=== PATIENT | female | born 1935 | race Caucasian/White ===

== ENCOUNTER 2023-03-23 18:21 | Observation (INO) | payer MEDICARE, OTHER, SELFPAY ==
[2023-03-23] VITALS (10 sets, daily range): BP systolic 122–185; BP diastolic 60–94; BMI 20.5; BMI 20.9
--- NOTE | 2023-03-23 12:57 | ED.GENMED ---
History of Present Illness
General
Chief Complaint: Abdominal Symptoms
Source: patient
Exam Limitations: none
Time Seen by Provider: 03/23/23 12:18
Nursing documentation reviewed up to this point in time: agreed with
Travel History
Have you had any contact with someone who has COVID-19?: No
Do you have any symptoms of coronavirus? Fever > 100 degrees, chills, cough, shortness of breath, sore throat, loss of taste or smell, muscle aches, or headache?: No
History of Present Illness
History of Present Illness:
Patient to ED with complaint of diarrhea x 4 days. Unable to eat or drink. Reports generalized abdominal pain. Denies fever/chills. +nausea, no vomiting. No prior history of same. Evaluated by PCP this AM, sent to ED for eval. SHe was on
amoxicilin 2 weeks ago to treat pneumonia. Brought to ED by spouse for eval.
Past History
Past History
ED Past Medical History: Arrthythmia (A. fib) and HTN
ED Past Surgical History: Cholecystectomy and Orthopedic
Social History
Tobacco: Non-smoker
Alcohol: None
Personal:
Living: with family
Review of Systems
Review of Systems
Allergies reviewed?: Yes
All Other Systems: ROS reviewed and negative except as documented in HPI and ROS
Constitutional: Reports fatigue
EENT: Reports no symptoms
Respiratory: Reports no symptoms
Cardiac: Reports no symptoms
ABD/GI: Reports abdominal pain and diarrhea
: Reports no symptoms
Musculoskeletal: Reports no symptoms
Skin: Reports no symptoms
Neurological: Reports weakness
Psychiatric: Reports no symptoms
Phy Exam
General Physical Exam
General Presentation: mild distress
General age: appears stated age
General Skin: warm and dry
General Habitus: normal
General Mental: alert
General Hydration: dry mucous membranes
Cardiovascular Exam
Cardiovascular Exam: regular rate/rhythm and no edema
Pulmonary Exam
Pulmonary Exam: lungs clear and no respiratory distress
Gastrointestinal Exam
Gastrointestinal Exam: normal bowel sounds, soft, no organomegaly, no pulsatile mass, non distended and no cva tenderness
Palpation: generalized: Moderate tenderness
Musculoskeletal Exam
Musculoskeletal Exam: full ROM and neuro vasc intact
Skin Exam
Skin Exam: normal color, warm/dry and no rash
Psychiatric Exam
Psychiatric Exam: normal mood/affect
Course
Orders/Labs/Results
Orders:
Orders
03/23/23 12:55
Ondansetron Injectable [Zofran] 4 mg IV NOW STA
03/23/23 12:56
Urinalysis Reflex To Culture Urgent
Date Specimen was Collected: 03/23/23
Time Specimen was Collected: 13:00
0.9% Sodium Chloride 1000 ml [Nss] 1,000 ml IV BOLUS
03/23/23 12:57
CT Abd/pelvis W Iv Cont Urgent
Comment:
Reason For Exam: profuse diarrhea
03/23/23 13:44
Complete Blood Count/With Diff Urgent
Comprehensive Metabolic Panel Urgent
Lipase Urgent
03/23/23 18:02
Admit/Transfer Patient As Directed
Co-Sign Provider:
Level of Care: Observation services
Assign to:: Telemetry
Physician / Group: hospitalist
Diagnosis: Acute dehydration, Diarrhea, Abdominal pain
Reason for Telemetry: Arrhythmia
Date to Stop Telemetry: 03/26/23
Time to Stop Telemetry: 11:00
03/23/23 18:05
Code Status As Directed
Resuscitation Status: Full Code
03/23/23 19:25
STOOL [C difficile Antigen & Toxins] Urgent
UHMPHREY Source: Feces/Stool
Specimen Description:
Date Specimen was Collected: 03/23/23
Time Specimen was Collected: 13:00
Stool Culture Urgent
HUMPHREY Source: Feces/Stool
Specimen Description:
Date Specimen was Collected: 03/23/23
Time Specimen was Collected: 13:00
03/23/23 19:42
0.9% Sodium Chloride 1000 ml [Nss] 1,000 ml IV 80 mls/hr
Acetaminophen [Tylenol] 650 mg PO Q4HPRN PRN
Ondansetron Injectable [Zofran] 4 mg IV Q6HPRN PRN
03/23/23 19:42
GASTROINTESTINAL CONSULT Routine
Consulting Provider: Damaris Denson
Was physician already notified: Yes
Stool For WBC Urgent
HUMPHREY Source: Feces/Stool
Specimen Description:
Activity As Directed
Activity Level: Out of Bed-Early Mobility
Pneumatic Compression Sleeves As Directed
Type: Knee high
Vital Signs As Directed
Frequency: Per unit guidelines
DX Deep Vein Thrombosis Video Routine
03/23/23 20:00
Apixaban [Eliquis] 5 mg PO BID
Carvedilol [Coreg] 3.125 mg PO BID
03/24/23 Breakfast
Clear Liquid
At Your Request: Limited Participation
03/24/23 08:00
Amiodarone [Pacerone] 200 mg PO DAILY
03/26/23 11:00
DC Protocol for Telemetry ONCE
Abnormal Lab Results
03/23/23
13:44
RBC 3.95 L 10^6/uL
(4.20-5.40)
Hct 36.8 L %
(37.0-47.0)
MCH 31.4 H pg
(27.0-31.0)
MPV 10.8 H fL
(7.4-10.4)
Absolute Lymphs (auto) 1.0 L 10^3/uL
(1.2-3.4)
Absolute Monos (auto) 0.7 H 10^3/uL
(0.1-0.6)
Lymphocytes % 13.9 L %
(20.5-51.1)
Monocytes % 9.9 H %
(1.7-9.3)
Chloride 111 H mmol/L
(98-107)
BUN 23 H mg/dl
(7-17)
Creatinine 1.1 H mg/dL
(0.6-1.0)
Glucose 112 H mg/dl
(70-99)
Total Bilirubin 1.4 H mg/dl
(0.2-1.3)
AST 43 H U/L
(14-36)
ALT 42 H U/L
(0-35)
Albumin 3.4 L g/dl
(3.5-5.0)
03/23/23 13:44
03/23/23 13:44
Vital Signs
Initial and Last Documented VS:
Initial Vital Signs
Temp Pulse Resp BP Pulse Ox
97.7 F 66 18 137/62 100
03/23/23 11:11 03/23/23 11:11 03/23/23 11:11 03/23/23 11:11 03/23/23 11:11
Last Documented Vital Signs
Temp Pulse Resp BP Pulse Ox
98.1 F 77 19 122/61 98
03/23/23 19:26 03/23/23 19:33 03/23/23 19:33 03/23/23 19:26 03/23/23 19:26
*Critical Care Note
Total Time (30-74mins, 75-104mins- exclusive of procedures): Not Applicable
Update Note
Update Note:
Patient to ED with cmplaint of diarrhea x 4 days, Unable to eat or drink due to abdominal discomfort, ongoing diarrhea. Pateint with recent antibiotic use. On amoxicillin 2 weeks ago for pneumonia. Labs reviewed, CT reviewed. No stool while in
dept. Unable to r/o C-diff at this time. Case discussed with dr. denson who is in agreement. WIll admit at this time due to weakness, dehydration. Stool for cdiff ordered. Will hold off antibiotic use until stool testing complete.
ED Attending Note
-
Portions of this chart may have been created with voice recognition software.� Occasional wrong word or��sound alike� substitutions may have occurred due to the inherent limitations of voice recognition software.
Discharge Plan
Departure
Patient Disposition: Admit
Date of Disposition: 03/23/23
Time of Disposition: 17:46
Presentation/result/management discussed w/ accepting MD/DO: Hospitalist
Patient with high blood pressure during this ER visit?: No
Condition: Fair
Covid-19: Not Applicable
Discharge Problem:
Acute dehydration, Diarrhea, Abdominal pain
Interventions
Interventions:
*Risk Screen - Suicide Last Done: 03/23/23 13:33
*General Assessment Last Done: 03/23/23 11:11
*Neglect/Abuse Screening Last Done: 03/23/23 13:33
ED- Fall Risk Assessment Last Done: 03/23/23 13:33
*ED COVID-19 Vaccine History Last Done: 03/23/23 11:11
*Nursing Disposition Last Done: 03/23/23 19:36
HX-Qjgjmm-Qkrgfnaifh Assessment Last Done: 03/23/23 13:33
Discharge Date and Time
Discharge Date/Time: 03/23/23 19:37
[2023-03-23] MEDS: ZOFRAN 4 MG IV (13:45)
[2023-03-23] MEDS: NSS 1000 IV ×2 (13:45→20:19)
[2023-03-23 13:56] LABS: % Basophils 0.6 % (0-2); % Eosinophils 0.7 % (0-6); % Immature Granulocytes 0.3 % (0-0.5); % Lymphocytes 13.9 % (20.5-51.1); % Monocytes 9.9 % (1.7-9.3); % Neutrophils 74.6 % (42.2-75.2); Absolute Eosinophils 0.1 10^3/uL (0-0.7); Absolute Monocytes 0.7 10^3/uL (0.1-0.6); Absolute Neutrophils 5.1 10^3/uL (1.4-6.5); Hematocrit 36.8 % (37.0-47.0); Hemoglobin 12.4 g/dL (12.0-16.0); Mean Corp Hgb Conc. 33.7 g/dL (33.0-37.0); Mean Corpuscular Hgb 31.4 pg (27.0-31.0); Mean Corpuscular Volume 93.2 fL (81.0-99.0); Mean Platelet Volume 10.8 fL (7.4-10.4); Nucleated Red Blood Cells % 0 %; Platelet Count 229 10^3/uL (130-400); Red Blood Cell Count 3.95 10^6/uL (4.20-5.40); Red Cell Dist. Width 14.1 % (11.5-14.5); White Blood Cell Count 6.9 10^3/uL (4.8-10.8)
[2023-03-23 14:05] LABS: ALT (SGPT) 42 U/L (0-35); AST (SGOT) 43 U/L (14-36); Albumin 3.4 g/dl (3.5-5.0); Alkaline Phosphatase 112 U/L (38-126); Blood Urea Nitrogen 23 mg/dl (7-17); Calcium 9.1 mg/dl (8.4-10.2); Carbon Dioxide 22 mmol/L (22-30); Chloride 111 mmol/L (98-107); Estimated Creatinine Clearance 31 ml/min; Glucose 112 mg/dl (70-99); Lipase 65 U/L (23-300); Potassium 3.8 mmol/L (3.5-5.1); Sodium 136 mmol/L (135-145); Total Bilirubin 1.4 mg/dl (0.2-1.3); Total Protein 6.9 g/dl (6.3-8.2); eGFR 48.33
--- NOTE | 2023-03-23 18:08 | HPS.HSE ---
Addendum entered and electronically signed by John Flynn MD 03/23/23 18:29:
I saw and examined the patient.
The [employer]INE[employer] or PA's note was reviewed and I agree with the note.
Comment: 87-year-old female presents with a chief complaints of diarrhea, diffuse abdominal pain, and anorexia.
159/60, 73, 13, 97.7 �F, 99%
NAD, AAOx3
RRR, normal S1/S2
CTAB
+BS, soft, NT, ND
CN2-[address] A/P:
1. As noted on the prior chest CT there is a 2.6 cm oval hypodensity between the stomach and the pancreas likely representing a pancreatic cystic lesion. Contrast-enhanced pancreatic MRI is recommended to fully evaluate. Neoplasm to be excluded.
2. Extensive diverticulosis. Mild wall thickening. No free fluid or fluid collection to suggest an abscess. No definite focal area to suggest acute diverticulitis however this may represent mild diffuse inflammatory/infectious etiology. The
differential includes diverticulitis and colitis. There is mild inflammatory stranding throughout the distal descending and sigmoid colon, nonspecific.
3. Tiny hypodensities in the liver suggest tiny cysts. Prior cholecystectomy.
4. Mildly enlarged at common bile duct, consistent with patient's age and previous cholecystectomy. Slightly more prominent biliary ductal dilatation and the left hepatic lobe is nonspecific.
5. 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
6. Bilateral pleural effusions improved since the chest CT 3 weeks ago.
WBC 6.9
Cr 1.1, AST 43, ALT 42
Diarrhea:
-currently hemodynamically stable
-recently completed a course of abx
-no stool in ER
-no abx for now
-check stool studies (C diff, Cx) if/when pt has further diarrhea
-IVFs, clears
-c/s GI
-antiemetics/pain control
Original Note:
Family Physician
-
Family Physician: Shahrzad Dietrich MD
Chief Complaint
-
abdominal pain and diarrhea
History of Present Illness
87 year old female comes to the emergency department today complaining of diarrhea x 4 days.� She reports dull lower abdominal pain and nausea. Denies vomiting. Denies fever/chills.�States she is unable to eat or drink.� No prior history of same.�
Of note she was being treated with Amoxicillin for pneumonia and completed her course about a week ago.
Medical History
Past Medical History
Past Medical History: Reports Arrhythmia (Paroxysmal atrial fibrillation) and HTN
Past Surgical History: Reports None
Social History
Tobacco: Non-smoker
Personal:
Living: With Family
Family History
Family History: Not pertinent
Allergies / Home Medications
Allergies reflects when Allergies were last updated in [employer].
Home Medications with original date entered in [employer]
Allergy/Medication List:
Allergies
Allergy/AdvReac Type Severity Reaction Status Date / Time
No Known Allergies Allergy Verified 03/23/23 11:14
Home Medications
apixaban 5 mg tablet (Eliquis) 5 mg PO BID 10/06/20
carvedilol 3.125 mg tablet 3.125 mg PO BID 10/06/20
amiodarone 200 mg tablet 200 mg PO DAILY 03/23/23
ascorbic acid (vitamin C) 1,000 mg tablet (Vitamin C) 1,000 mg PO DAILY 03/23/23
cholecalciferol (vitamin D3) 50 mcg (2,000 unit) tablet (Vitamin D3) 50 mcg PO DAILY 03/23/23
cranberry 400 mg capsule 1,500 mg PO DAILY 03/23/23
loperamide 1 mg/7.5 mL oral liquid 2 mg PO BIDPRN PRN DIARRHEA 03/23/23
omega 3-bgw-ebb-fish oil 1,200 mg (144 mg-216 mg) capsule (Fish Oil) 1 cap PO DAILY 03/23/23
red yeast rice 600 mg tablet 1,200 mg PO DAILY 03/23/23
turmeric 400 mg capsule 1,500 mg PO DAILY 03/23/23
vitamin E 268 mg (400 unit) capsule 180 mg PO DAILY 03/23/23
Review of Systems
-
History Source: Patient
A 12 point ROS was completed and negative except as noted: Yes
Constitutional: Reports No Symptoms
EENT: Reports No Symptoms
Respiratory: Reports No Symptoms
Cardiac: Reports No Symptoms
Abdomen/GI: Reports Abdominal Pain, Nausea and Diarrhea
: Reports No Symptoms
Musculoskeletal: Reports No Symptoms
Skin: Reports No Symptoms
Neurological: Reports No Symptoms
Endocrine: Reports No Symptoms
Hematologic/Lymphatic: Reports No Symptoms
Psych: Reports No Symptoms
Physical Exam
Vital Signs
Vital Signs
Temp Pulse Resp BP Pulse Ox
97.7 F 73 13 159/60 99
03/23/23 11:11 03/23/23 14:30 03/23/23 14:30 03/23/23 14:00 03/23/23 14:30
Physical Exam
General: No Apparent Distress and Conversant
HEENT: NormoCephalic, Anicteric and Atraumatic
Respiratory: Clear
Cardiac: S1/S2 and Regular Rhythm
Breast: Deferred by me
GI: Soft, Non Tender, Non Distended and Normal Bowel Sounds
Rectal: Deferred by Provider
Genito-urinary: Deferred by me
Musculoskeletal: No Clubbing, No Cyanosis and No Edema
Skin: Warm and Dry
Neuro: Awake, Alert and Oriented
Hematologic/Lymphatic: No Lymphadenopathy
Psych: Calm and Intact Judgment/Insight
Laboratory Results
-
03/23/23 13:44
03/23/23 13:44
Laboratory Results
Total Bilirubin 1.4 mg/dl (0.2-1.3) H 03/23/23 13:44
AST 43 U/L (14-36) H 03/23/23 13:44
ALT 42 U/L (0-35) H 03/23/23 13:44
Alkaline Phosphatase 112 U/L (38-126) 03/23/23 13:44
Lipase 65 U/L (23-300) 03/23/23 13:44
Impression/Plan
-
IMPRESSION/PLAN:
Admit to telemetry under Hospitalist service
#Diarrhea
#Acute Dehydration
#Acute Abdominal Pain
-recently completed a course of Amoxicillin for pneumonia about a week ago
-no stool in ER
-check stool studies (C diff, Cx, WBC) if/when pt has further diarrhea
-IVF
-Clear Liquid Diet
-c/s GI
-antiemetics/pain control
#Paroxysmal atrial fibrillation
-Continue Amiodarone, Coreg and Eliquis
Full Code
DVT Prophylaxis: Eliquis
#
[2023-03-23] MEDS: ELIQUIS 5 MG PO (20:18)
[2023-03-23] MEDS: TUMS 1 TABLET PO (20:18)
[2023-03-23] MEDS: COREG 3.125 MG PO (20:18)
--- NOTE | 2023-03-23 22:00 | PTCARENOTE ---
pt is aaox3, no c/o pain at this time. pt is oriented to room w/ call chris in reach.
[2023-03-24] VITALS (7 sets, daily range): BP systolic 112–152; BP diastolic 64–71
[2023-03-24] MEDS: TYLENOL 650 MG PO ×2 (05:33→19:13)
[2023-03-24] MEDS: ZOFRAN 4 MG IV (05:34)
[2023-03-24] MEDS: NSS 1000 IV ×2 (08:45→21:41)
[2023-03-24] MEDS: PACERONE 200 MG PO (08:46)
[2023-03-24] MEDS: COREG 3.125 MG PO ×2 (08:46→19:13)
[2023-03-24] MEDS: ELIQUIS 5 MG PO ×2 (08:46→19:13)
--- NOTE | 2023-03-24 09:12 | CON.GI ---
Consultation
-
Date/Time Consultation Requested: 03/24/2023
Date/Time Consultation Performed: 03/24/2023
Requesting Provider: Dr. Flynn
Performing Provider: Dr. Denson
Reason for Consultation: Abdominal pain
Medical History
Chief Complaint / HPI
Chief Complaint: Abdominal pain
History of Present Illness:
87-year-old with acute onset of severe to mid lower abdominal pain and diarrhea with some nausea starting Saturday night, reports that she did not eat outside and her and she ate the same food, started with diarrhea, multiple episodes of
nonbloody stool. No vomiting. Prior bowel movement pattern is 1 bowel movement every day or every other day, formed stool, some pushing and straining, no blood or black stool, takes MiraLAX once a week or so. No heartburn or trouble swallowing.
No unintentional weight loss or NSAID use. History of pneumonia about 2 weeks ago, treated with amoxicillin. CT scan of the abdomen and pelvis with IV contrast only 03/23/2023 showing cystic pancreatic lesion about 2.6 cm between the stomach and
pancreas, extensive diverticulosis and mild wall thickening,.no definite evidence of diverticulitis. Mild inflammatory stranding throughout the distal descending and sigmoid colon which is nonspecific. No leukocytosis or fevers. Stool for C.
difficile was negative, cultures and white cells pending.
Prior episodes similar to this in 2019, CT scan suggestive of colitis in the splenic flexure.
History of pancreatic cyst, she follows up with Dr. Chacko at [facility] for pancreatic cysts and also for her colonoscopies. She reports that she used to get MRIs frequently but last MRI couple of years ago, her last colonoscopy was about 10
years ago. Per her recall, this was noted normal.
This visit, no leukocytosis, stool for C. difficile and white cells negative, cultures pending.
Past Medical History
Past Medical History: HTN and Other (GERD, pancreatic cyst, follows up with Dr. Chacko, history of previous EUS with FNA/biopsy negative per patient, history of cholecystectomy.)
Social History
Tobacco: Non-Smoker
Family History
Family History: Reviewed & Not Pertinent
Allergies / Home Medications
Allergy/AdvReac Type Severity Reaction Status Date / Time
No Known Allergies Allergy Verified 03/23/23 11:14
Medication Instructions Recorded
apixaban 5 mg tablet (Eliquis) 5 mg PO BID Blood Clot 10/06/20
Prevention/Tx
carvedilol 3.125 mg tablet 3.125 mg PO BID Heart 10/06/20
Disease/Condition
amiodarone 200 mg tablet 200 mg PO DAILY Arrhythmia 03/23/23
ascorbic acid (vitamin C) 1,000 mg 1,000 mg PO DAILY Supplement 03/23/23
tablet (Vitamin C)
cholecalciferol (vitamin D3) 50 50 mcg PO DAILY Supplement 03/23/23
mcg (2,000 unit) tablet (Vitamin
D3)
cranberry 400 mg capsule 1,500 mg PO DAILY Supplement 03/23/23
loperamide 1 mg/7.5 mL oral liquid 2 mg PO BIDPRN PRN DIARRHEA 03/23/23
omega 4-cgv-xct-fish oil 1,200 mg 1 cap PO DAILY High Cholesterol 03/23/23
(144 mg-216 mg) capsule (Fish Oil)
red yeast rice 600 mg tablet 1,200 mg PO DAILY High Cholesterol 03/23/23
turmeric 400 mg capsule 1,500 mg PO DAILY Supplement 03/23/23
vitamin E 268 mg (400 unit) capsule 180 mg PO DAILY Supplement 03/23/23
Review of Systems
-
All other systems: A 12 pt ROS was Negative except as stated above in HPI
Vital Signs
Temp Pulse Resp BP Pulse Ox
98.7 F 87 12 116/66 94
03/24/23 07:05 03/24/23 07:05 03/24/23 07:05 03/24/23 07:05 03/24/23 07:05
Physical Exam
Exam
GI: Soft, Non Tender (Some discomfort in the left upper and lower abdomen), Non Distended and Normal Bowel Sounds
Results
WBC 6.9 10^3/uL (4.8-10.8) 03/23/23 13:44
Hgb 12.4 g/dL (12.0-16.0) 03/23/23 13:44
Hct 36.8 % (37.0-47.0) L 03/23/23 13:44
MCV 93.2 fL (81.0-99.0) 03/23/23 13:44
Plt Count 229 10^3/uL (130-400) 03/23/23 13:44
Absolute Neuts (auto) 5.1 10^3/uL (1.4-6.5) 03/23/23 13:44
Sodium 136 mmol/L (135-145) 03/23/23 13:44
Potassium 3.8 mmol/L (3.5-5.1) 03/23/23 13:44
Chloride 111 mmol/L (98-107) H 03/23/23 13:44
Carbon Dioxide 22 mmol/L (22-30) 03/23/23 13:44
BUN 23 mg/dl (7-17) H 03/23/23 13:44
Creatinine 1.1 mg/dL (0.6-1.0) H 03/23/23 13:44
Calcium 9.1 mg/dl (8.4-10.2) 03/23/23 13:44
Total Bilirubin 1.4 mg/dl (0.2-1.3) H 03/23/23 13:44
AST 43 U/L (14-36) H 03/23/23 13:44
ALT 42 U/L (0-35) H 03/23/23 13:44
Alkaline Phosphatase 112 U/L (38-126) 03/23/23 13:44
Lipase 65 U/L (23-300) 03/23/23 13:44
Diagnostic Image Results:
Prior GI Procedures:
EGD:
Colonoscopy:
Assessment / Plan
-
87-year-old female with history of hypertension, atrial fibrillation on Eliquis presenting with sudden onset abdominal discomfort, nausea and nonbloody diarrhea starting last Saturday, previous bowel pattern was once a day or every other day. In
the ER, CT scan of the abdomen and pelvis showing extensive diverticulosis and mild wall thickening in the left colon without any evidence of diverticulitis. Also noted is a 2.6 cm cyst in the pancreas. Labs showed mildly elevated LFTs on
admission, otherwise no leukocytosis. Last colonoscopy about 10 years ago as per patient.
-Acute onset abdominal pain, nonbloody diarrhea
Rule out infectious colitis
Stool for C. difficile and white cells negative but cultures pending
Okay for clear liquid diet, will advance as tolerated
If diarrhea does not resolve, might need flexible sigmoidoscopy
-Mildly elevated LFTs
Will monitor
-History of pancreatic cyst, followed by Dr. Chacko at [facility]
Reports previous EUS/FNA but recently followed with MRIs
Once diarrhea is better, will get MRI of the pancreas to evaluate the cyst
Will follow
-
-
Thank you for consultation and allowing me to participate in the patient's care. Please call the library paraprofessional GI physician during the after hours with any questions or concerns.
--- NOTE | 2023-03-24 10:26 | W.PN.HOSP.TC ---
Today's Communication/Plan
-
see bold
Assessment / Plan
Assessment / Plan
Gen: NAD, AAOx3.
Eyes: EOMI, PERRLA, no scleral icterus.
Neck: supple.
CV: irreg/irreg, +S1/S2, no m/r/g.
Resp: CTAB, no rales, wheezes, or rhonchi.
Abd: +BS, soft, NT to light palpation, ND
Skin: No rashes.
Neuro: CN 2-12 intact, non-focal.
Psych: Normal mood and affect.
CT A/P:
1. � As noted on the prior chest CT there is a 2.6 cm oval hypodensity between the stomach and the pancreas likely representing a pancreatic cystic lesion. Contrast-enhanced pancreatic MRI is recommended to fully evaluate. Neoplasm to be excluded.
2. � Extensive diverticulosis. Mild wall thickening. No free fluid or fluid collection to suggest an abscess. No definite focal area to suggest acute diverticulitis however this may represent mild diffuse inflammatory/infectious etiology. The
differential includes diverticulitis and colitis. There is mild inflammatory stranding throughout the distal descending and sigmoid colon, nonspecific.
3. � Tiny hypodensities in the liver suggest tiny cysts. Prior cholecystectomy.
4. � Mildly enlarged at common bile duct, consistent with patient's age and previous cholecystectomy. Slightly more prominent biliary ductal dilatation and the left hepatic lobe is nonspecific.
5. 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
6. � Bilateral pleural effusions improved since the chest CT 3 weeks ago.
WBC 6.9
Cr 1.1, AST 43, ALT 42
Diarrhea:
-currently hemodynamically stable
-recently completed a course of abx
-C diff NEG, follow rest of stool studies
-afebrile
-IVFs, clears
-c/s GI
-antiemetics/pain control
-no abx at this moment, will d/w GI
-repeat CBC/BMP
Paroxysmal atrial fibrillation: Continue Amiodarone, Coreg and Eliquis
FULL/Eliquis
Anticipated Discharge: 24 - 48 hours
Subjective/Interval History
-
Date of Service: March 24, 2023
Pt with watery stool. No hematochezia currently but reports hematochezia prior. Still with abd pain.
Objective Data
-
Vital Signs:
Vital Signs
Temp Pulse Resp BP Pulse Ox
98.7 F 87 12 116/66 94
03/24/23 07:05 03/24/23 07:05 03/24/23 07:05 03/24/23 07:05 03/24/23 07:05
I&O
03/23/23 03/24/23 03/25/23
06:59 06:59 06:59
Intake Total 1360 / 1360
Balance 1360 / 1360
[2023-03-24 11:07] LABS: Hemoglobin 11.5 g/dL (12.0-16.0); Mean Corp Hgb Conc. 33.8 g/dL (33.0-37.0); Mean Corpuscular Hgb 31.7 pg (27.0-31.0); Mean Corpuscular Volume 93.7 fL (81.0-99.0); Mean Platelet Volume 10.8 fL (7.4-10.4); Platelet Count 210 10^3/uL (130-400); Red Blood Cell Count 3.63 10^6/uL (4.20-5.40); Red Cell Dist. Width 14.1 % (11.5-14.5); White Blood Cell Count 5.3 10^3/uL (4.8-10.8)
[2023-03-24 11:20] LABS: Blood Urea Nitrogen 24 mg/dl (7-17); Calcium 8.8 mg/dl (8.4-10.2); Carbon Dioxide 17 mmol/L (22-30); Chloride 109 mmol/L (98-107); Estimated Creatinine Clearance 37 ml/min; Glucose 100 mg/dl (70-99); Potassium 3.4 mmol/L (3.5-5.1); Sodium 137 mmol/L (135-145); eGFR > 60.00
--- NOTE | 2023-03-24 15:39 | CM ---
CM following re: d/c planning.
CM met with pt at bedside to complete IA.
Pt and spouse reside together in private residence.
Pt reports she is independent with mobility and ADLs.
No DME or VN in the home.
PCP is Dr. Webber and pharmacy is [facility] in [place].
PALACIO discussed and copy provided.
Pt does not expect any d/c needs.
CM will continue to follow.
[2023-03-24 17:57] LABS: Urine Albumin Trace (Neg - Trace); Urine Bilirubin 1+ (Negative); Urine Character Clear (Clear); Urine Color Amber; Urine Glucose Negative (Negative); Urine Ketone 1+ (Negative); Urine Leukocyte Negative (Negative); Urine Nitrite Negative (Negative); Urine Occult Blood Negative (Negative); Urine Urobilinogen 1+ (Neg - 1+)
[2023-03-25 03:33] VITALS: BP 121/55
[2023-03-25 07:13] LABS: Hematocrit 33.3 % (37.0-47.0); Hemoglobin 10.9 g/dL (12.0-16.0); Mean Corp Hgb Conc. 32.7 g/dL (33.0-37.0); Mean Corpuscular Hgb 31.1 pg (27.0-31.0); Mean Corpuscular Volume 94.9 fL (81.0-99.0); Mean Platelet Volume 11.2 fL (7.4-10.4); Platelet Count 206 10^3/uL (130-400); Red Blood Cell Count 3.51 10^6/uL (4.20-5.40); Red Cell Dist. Width 13.9 % (11.5-14.5); White Blood Cell Count 4.1 10^3/uL (4.8-10.8)
[2023-03-25 07:30] VITALS: BP 117/95
[2023-03-25 07:35] LABS: Blood Urea Nitrogen 24 mg/dl (7-17); Calcium 8.2 mg/dl (8.4-10.2); Carbon Dioxide 18 mmol/L (22-30); Chloride 112 mmol/L (98-107); Estimated Creatinine Clearance 42 ml/min; Glucose 82 mg/dl (70-99); Potassium 3.4 mmol/L (3.5-5.1); Sodium 136 mmol/L (135-145); eGFR > 60.00
[2023-03-25] MEDS: COREG 3.125 MG PO ×2 (08:32→21:00)
[2023-03-25] MEDS: ELIQUIS 5 MG PO ×2 (08:32→20:59)
[2023-03-25] MEDS: PACERONE 200 MG PO (08:32)
[2023-03-25 11:10] VITALS: BP 140/69
--- NOTE | 2023-03-25 11:41 | W.PN.HOSP.TC ---
Today's Communication/Plan
-
see bold
Assessment / Plan
Assessment / Plan
Gen: NAD, AAOx3.
Eyes: EOMI, PERRLA, no scleral icterus.
Neck: supple.
CV: irreg/irreg, +S1/S2, no m/r/g.
Resp: remains CTAB, no rales, wheezes, or rhonchi.
Abd: remains +BS, soft, NT to light palpation, ND
Skin: No rashes.
Neuro: remains CN 2-12 intact, non-focal.
Psych: Normal mood and affect.
CT A/P:
1. � As noted on the prior chest CT there is a 2.6 cm oval hypodensity between the stomach and the pancreas likely representing a pancreatic cystic lesion. Contrast-enhanced pancreatic MRI is recommended to fully evaluate. Neoplasm to be excluded.
2. � Extensive diverticulosis. Mild wall thickening. No free fluid or fluid collection to suggest an abscess. No definite focal area to suggest acute diverticulitis however this may represent mild diffuse inflammatory/infectious etiology. The
differential includes diverticulitis and colitis. There is mild inflammatory stranding throughout the distal descending and sigmoid colon, nonspecific.
3. � Tiny hypodensities in the liver suggest tiny cysts. Prior cholecystectomy.
4. � Mildly enlarged at common bile duct, consistent with patient's age and previous cholecystectomy. Slightly more prominent biliary ductal dilatation and the left hepatic lobe is nonspecific.
5. 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
6. � Bilateral pleural effusions improved since the chest CT 3 weeks ago.
WBC 6.9
Cr 1.1, AST 43, ALT 42
Diarrhea:
-currently hemodynamically stable
-recently completed a course of abx
-C diff NEG, follow rest of stool studies
-afebrile
-stop IVFs, advance diet
-GI following
-antiemetics/pain control
-no abx indicated
Hypokalemia: PO K, check Mg
Paroxysmal atrial fibrillation: Continue Amiodarone, Coreg and Eliquis
FULL/Eliquis
Anticipated Discharge: Within 24 hours
Subjective/Interval History
-
Date of Service: March 25, 2023
No diarrhea today. Abd stitch bonding machine tender but abd pain improving as per pt.
Objective Data
-
Labs:
Laboratory Results
03/25/23
06:30
WBC 4.1 L
Hgb 10.9 L
Hct 33.3 L
Plt Count 206
Sodium 136
Potassium 3.4 L
Chloride 112 H
Carbon Dioxide 18 L
BUN 24 H
Creatinine 0.8
Glucose 82
Calcium 8.2 L
Vital Signs:
Vital Signs
Temp Pulse Resp BP Pulse Ox
96.8 F L 65 18 117/95 99
03/25/23 07:30 03/25/23 07:30 03/25/23 07:30 03/25/23 07:30 03/25/23 07:30
I&O
03/24/23 03/25/23 03/26/23
06:59 06:59 06:59
Intake Total 1360 / 1360 1440 / 1440
Balance 1360 / 1360 1440 / 1440
--- NOTE | 2023-03-25 11:50 | CM ---
Chart reviewed and plan is to home with spouse when stable.
Plan; Home with spouse.
[2023-03-25] MEDS: NSS 1000 IV (12:08)
[2023-03-25] MEDS: KCL 270 MEQ IV (12:08)
[2023-03-25 12:35] LABS: Magnesium 1.6 mg/dl (1.6-2.3)
--- NOTE | 2023-03-25 14:44 | W.PN.GI.CBS2 ---
Today's Communication / Plan
-
-Acute onset abdominal pain, nonbloody diarrhea
Rule out infectious colitis
Stool for C. difficile and white cells negative but cultures pending
Given no further diarrhea, okay to advance to low residue diet.
Noted hemoglobin did trend down slightly, will monitor closely.
-Mildly elevated LFTs
Will repeat
-History of pancreatic cyst, followed by Dr. Chacko at [place]
Reports previous EUS/FNA but recently followed with MRIs
Ordered MRI of the pancreas to evaluate the cyst
Will follow
Assessment / Plan
-
87-year-old female with history of hypertension, atrial fibrillation on Eliquis presenting with sudden onset abdominal discomfort, nausea and nonbloody diarrhea starting last Saturday, previous bowel pattern was once a day or every other day. In
the ER, CT scan of the abdomen and pelvis showing extensive diverticulosis and mild wall thickening in the left colon without any evidence of diverticulitis. Also noted is a 2.6 cm cyst in the pancreas. Labs showed mildly elevated LFTs on
admission, otherwise no leukocytosis. Last colonoscopy about 10 years ago as per patient.
-Acute onset abdominal pain, nonbloody diarrhea
Rule out infectious colitis
Stool for C. difficile and white cells negative but cultures pending
Given no further diarrhea, okay to advance to low residue diet.
Noted hemoglobin did trend down slightly, will monitor closely.
-Mildly elevated LFTs
Will repeat
-History of pancreatic cyst, followed by Dr. Chacko at [place]
Reports previous EUS/FNA but recently followed with MRIs
Ordered MRI of the pancreas to evaluate the cyst
Will follow
Subjective
Subjective
Date of Service: March 25, 2023
Patient without any further diarrhea, some mild discomfort in the upper abdomen, no nausea or vomiting. Tolerating clear liquid diet.
Objective
Data Reviewed
Laboratory Data:
Laboratory Results
03/25/23 06:30
03/25/23 06:30
Laboratory Results
Magnesium 1.6 mg/dl (1.6-2.3) 03/25/23 06:30
Total Bilirubin 1.4 mg/dl (0.2-1.3) H 03/23/23 13:44
AST 43 U/L (14-36) H 03/23/23 13:44
ALT 42 U/L (0-35) H 03/23/23 13:44
Alkaline Phosphatase 112 U/L (38-126) 03/23/23 13:44
Lipase 65 U/L (23-300) 03/23/23 13:44
Vital Signs and I&O:
Vital Signs
Temp Pulse Resp BP Pulse Ox
98.4 F 73 16 140/69 98
03/25/23 11:10 03/25/23 11:10 03/25/23 11:10 03/25/23 11:10 03/25/23 11:10
I&O
03/24/23 03/25/23 03/26/23
06:59 06:59 06:59
Intake Total 1360 / 1360 1440 / 1440
Balance 1360 / 1360 1440 / 1440
Physical Exam
Physical Exam
GI: Soft, Non Distended and Non Tender
[2023-03-25 15:00] VITALS: BP 133/71
[2023-03-25 23:08] VITALS: BP 151/86
[2023-03-26] MEDS: ELIQUIS 5 MG PO (08:15)
[2023-03-26] MEDS: PACERONE 200 MG PO (08:15)
[2023-03-26] MEDS: COREG 3.125 MG PO (08:16)
[2023-03-26 08:55] LABS: ALT (SGPT) 23 U/L (0-35); AST (SGOT) 25 U/L (14-36); Albumin 2.7 g/dl (3.5-5.0); Alkaline Phosphatase 97 U/L (38-126); Blood Urea Nitrogen 18 mg/dl (7-17); Calcium 8.6 mg/dl (8.4-10.2); Carbon Dioxide 19 mmol/L (22-30); Chloride 113 mmol/L (98-107); Direct Bilirubin 0.4 mg/dl (0.0-0.4); Estimated Creatinine Clearance 37 ml/min; Glucose 87 mg/dl (70-99); Potassium 3.7 mmol/L (3.5-5.1); Sodium 134 mmol/L (135-145); Total Bilirubin 0.8 mg/dl (0.2-1.3); Total Protein 5.8 g/dl (6.3-8.2); eGFR > 60.00
--- NOTE | 2023-03-26 10:20 | W.PN.HOSP.TC ---
Today's Communication/Plan
-
Discharged
Assessment / Plan
Assessment / Plan
HPI: 87-year-old female presents with a chief complaints of diarrhea, diffuse abdominal pain, and anorexia.
Diarrhea:
-recently completed a course of abx
-C diff/ stool WBC's NEG, rest of stool studies NEG so far
-afebrile, no abx indicated
-Status post IV fluids, tolerating low residue diet
-Medically stable for discharge today
Pancreatic cyst:
-Outpatient follow-up
Hypokalemia: Repleted and resolved, magnesium normal
Paroxysmal atrial fibrillation: Continue Amiodarone, Coreg and Eliquis
DVT prophylaxis�Eliquis
Full code
PE
Gen: NAD, AAOx3.
Eyes: EOMI, PERRLA, no scleral icterus.
Neck: supple.
CV: irreg/irreg, +S1/S2, no m/r/g.
Resp: remains CTAB, no rales, wheezes, or rhonchi.
Abd: remains +BS, soft, NT to light palpation, ND
Skin: No rashes.
Neuro: remains CN 2-12 intact, non-focal.
Psych: Normal mood and affect.
Anticipated Discharge: Today
Subjective/Interval History
-
Date of Service: March 26, 2023
Patient had some mild diarrhea yesterday, none this morning. She is tolerating a low residue diet.
Objective Data
-
Labs:
Laboratory Results
03/26/23
07:38
Sodium 134 L
Potassium 3.7
Chloride 113 H
Carbon Dioxide 19 L
BUN 18 H
Creatinine 0.9
Glucose 87
Calcium 8.6
Total Bilirubin 0.8
AST 25
ALT 23
Alkaline Phosphatase 97
Vital Signs:
Vital Signs
Temp Pulse Resp BP Pulse Ox
97.7 F 73 16 155/83 98
03/25/23 23:08 03/26/23 08:15 03/25/23 23:08 03/26/23 08:15 03/25/23 23:08
I&O
03/25/23 03/26/23 03/27/23
06:59 06:59 06:59
Intake Total 1440 / 1440 1360 / 1360
Balance 1440 / 1440 1360 / 1360
--- NOTE | 2023-03-26 12:19 | W.DCSUMMARY ---
Discharge Summary
Discharge Data
Date of Admission: 03/23/23
Date of Discharge: 03/26/23
-
Pending Results: No
Hospital Course
Discharge diagnosis:
Abdominal pain with diarrhea
Elevated liver function tests
Hypokalemia
Chronic pancreatic cyst
Paroxysmal atrial fibrillation
Abd MRI:
1. Septated cystic lesion at the superior margin of the pancreatic body measuring up to 3.1 cm most suspicious for a cystic pancreatic neoplasm. Leading consideration would be a serous cystadenoma, although no characteristic central fibrous scar.
2. Cholecystectomy.
3. Small scattered hepatic and bilateral renal cysts.
4. Colonic diverticulosis.
5. Small to moderate right and small left pleural effusions.
Hospital course:
87-year-old female with a past medical history of paroxysmal atrial fibrillation on Eliquis, and hypertension was admitted for acute onset of abdominal pain with diarrhea. Patient was seen in conjunction with GI. She recently took amoxicillin for
pneumonia, and finished her course. Stool studies were negative for C. difficile, negative for white blood cells. Stool cultures were negative. Patient received conservative management with IV fluids. After several days, she tolerated a low
residue diet.
Patient had mildly elevated liver function test. This was monitored, and resolved.
Patient also has a chronic pancreatic cyst. She received an MRI, results as above. She has been instructed to follow-up with her usual GI doctor for monitoring.
Patient is medically stable for discharge. She needs to follow-up with her primary care doctor in 1 week.
Disposition: Home self-care
Discharge planning: Required 32 minutes
Discharge Plan
-
Patient Disposition: Home (Routine Discharge)
Discharge Diagnosis/Procedures: Acute diarrhea, hypokalemia, pancreatic cyst, paroxysmal atrial fibrillation
Condition: Good
Diet: Low Residue
Activity: As tolerated
Driving Restrictions: As prior to admission
Activity Restrictions/Additional Instructions:
Please follow-up with your usual GI doctor to monitor your pancreatic cyst.
Also follow-up with your primary care doctor in 1 week.
Referrals:
Shahrzad Dietrich MD [Family Provider] - in one week
Prescriptions:
Continued
carvedilol 3.125 MG tablet
3.125 mg PO BID
Eliquis 5 MG tablet
5 mg PO BID
ascorbic acid (vitamin C) [Vitamin C] 1,000 mg Tablet
1,000 mg PO DAILY
amiodarone 200 mg Tablet
200 mg PO DAILY
cranberry 400 mg Capsule
1,500 mg PO DAILY
vitamin E 268 mg (400 unit) Capsule
180 mg PO DAILY
loperamide 1 mg/7.5 mL Liquid
2 mg PO BIDPRN PRN (Reason: DIARRHEA)
cholecalciferol (vitamin D3) [Vitamin D3] 50 mcg (2,000 unit) Tablet
50 mcg PO DAILY
omega 1-oof-zlb-fish oil [Fish Oil] 1,200 (144-216) mg Capsule
1 cap PO DAILY
red yeast rice 600 mg Tablet
1,200 mg PO DAILY
turmeric 400 mg Capsule
1,500 mg PO DAILY
Discharge Orders:
Discharge Patient (As Directed); Ordered 03/26/23
Ordered By: Josue Martinez
Discharge Date and Time
Discharge Date/Time: 03/26/23 16:18
--- NOTE | 2023-03-26 12:53 | CM ---
Plan: Home no needs.
--- NOTE | 2023-03-26 14:12 | CM ---
manager ems met with patient and patient has been cleared for discharge today, patient's daughter in law to transport patient to home.
Plan; Home no needs.
== END 2023-03-26 16:18 | disposition home or self-care (01) ==
LOC: 4 WEST ACU 18:21
PROVIDERS: Nurse Practitioner; ADMITTING PHYSICIAN Internal Medicine; ATTENDING PHYSICIAN Family Medicine; CONSULT PHYSICIAN Internal Medicine Gastroenterology; EMERGENCY PHYSICIAN Emergency Medicine; FAMILY PHYSICIAN Family Medicine
DX: R19.7 Diarrhea, unspecified (principal); R10.9 Unspecified abdominal pain; E87.6 Hypokalemia; I48.0 Paroxysmal atrial fibrillation; I10 Essential (primary) hypertension; K86.2 Cyst of pancreas; K57.30 Diverticulosis of large intestine without perforation or abscess without bleeding; R79.89 Other specified abnormal findings of blood chemistry; E86.0 Dehydration; R63.0 Anorexia; M41.85 Other forms of scoliosis, thoracolumbar region; J90 Pleural effusion, not elsewhere classified; Z79.01 Long term (current) use of anticoagulants; Z90.49 Acquired absence of other specified parts of digestive tract; Z87.01 Personal history of pneumonia (recurrent)
CPT/HCPCS: 74177; 74183; 80048; 80053; 81003; 82248; 83690; 83735; 85025; 85027; 87045; 87046; 87077; 87324; 87427; 87449; 89055; 96361; 96374; 99285; A9575; G0378; Q9967

== ENCOUNTER → 2023-04-03 08:05 | Outpatient (REF) | payer MEDICARE, OTHER, SELFPAY ==
[2023-04-03 09:31] LABS: % Basophils 0.6 % (0-2); % Eosinophils 2.5 % (0-6); % Immature Granulocytes 0.2 % (0-0.5); % Lymphocytes 29.8 % (20.5-51.1); % Monocytes 8.4 % (1.7-9.3); % Neutrophils 58.5 % (42.2-75.2); Absolute Eosinophils 0.1 10^3/uL (0-0.7); Absolute Lymphocytes 1.6 10^3/uL (1.2-3.4); Absolute Monocytes 0.4 10^3/uL (0.1-0.6); Absolute Neutrophils 3.1 10^3/uL (1.4-6.5); Hematocrit 33.8 % (37.0-47.0); Hemoglobin 11.2 g/dL (12.0-16.0); Mean Corp Hgb Conc. 33.1 g/dL (33.0-37.0); Mean Corpuscular Hgb 31.1 pg (27.0-31.0); Mean Corpuscular Volume 93.9 fL (81.0-99.0); Mean Platelet Volume 10.9 fL (7.4-10.4); Nucleated Red Blood Cells % 0 %; Platelet Count 239 10^3/uL (130-400); Red Cell Dist. Width 14.2 % (11.5-14.5); White Blood Cell Count 5.2 10^3/uL (4.8-10.8)
[2023-04-03 10:15] LABS: ALT (SGPT) 24 U/L (0-35); AST (SGOT) 29 U/L (14-36); Alkaline Phosphatase 108 U/L (38-126); Blood Urea Nitrogen 24 mg/dl (7-17); Calcium 8.8 mg/dl (8.4-10.2); Carbon Dioxide 22 mmol/L (22-30); Chloride 107 mmol/L (98-107); Glucose 99 mg/dl (70-99); Iron 47 ug/dl (37-170); Potassium 3.6 mmol/L (3.5-5.1); Sodium 137 mmol/L (135-145); Total Bilirubin 0.7 mg/dl (0.2-1.3); Total Protein 6.1 g/dl (6.3-8.2); eGFR > 60.00
[2023-04-03 10:25] LABS: Percent Saturation 18 % (20-50); Total Iron Binding Capacity 253 ug/dl (265-497)
[2023-04-03 10:46] LABS: Ferritin 62.3 ng/ml (11.1-264.0)
[2023-04-03 11:18] LABS: Folate 15.7 ng/ml (2.76-20); Vitamin B12 > 1000 pg/ml (239-931)
== END ==
LOC: HWRAD 08:05
PROVIDERS: ATTENDING PHYSICIAN Internal Medicine Critical Care Medicine; FAMILY PHYSICIAN Family Medicine
DX: R91.8 Other nonspecific abnormal finding of lung field (principal); D64.9 Anemia, unspecified; R74.01 Elevation of levels of liver transaminase levels; E86.0 Dehydration
CPT/HCPCS: 36415; 71250; 80053; 82607; 82728; 82746; 83540; 83550; 85025

== ENCOUNTER 2023-04-07 22:07 | Inpatient (IN) | payer MEDICARE, OTHER, SELFPAY ==
[2023-04-07 18:22] VITALS: BP 133/80
[2023-04-07 18:52] VITALS: BP 152/92
[2023-04-07 19:00] VITALS: BP 160/94; BMI 22.4
[2023-04-07 19:02] LABS: % Basophils 0.5 % (0-2); % Immature Granulocytes 0.5 % (0-0.5); % Lymphocytes 20.1 % (20.5-51.1); % Monocytes 8.2 % (1.7-9.3); % Neutrophils 68.7 % (42.2-75.2); Absolute Eosinophils 0.2 10^3/uL (0-0.7); Absolute Lymphocytes 1.5 10^3/uL (1.2-3.4); Absolute Monocytes 0.6 10^3/uL (0.1-0.6); Absolute Neutrophils 5.1 10^3/uL (1.4-6.5); Hemoglobin 11.4 g/dL (12.0-16.0); Mean Corp Hgb Conc. 33.5 g/dL (33.0-37.0); Mean Corpuscular Hgb 30.5 pg (27.0-31.0); Mean Corpuscular Volume 90.9 fL (81.0-99.0); Mean Platelet Volume 10.9 fL (7.4-10.4); Nucleated Red Blood Cells % 0 %; Platelet Count 290 10^3/uL (130-400); Red Blood Cell Count 3.74 10^6/uL (4.20-5.40); Red Cell Dist. Width 14.5 % (11.5-14.5); White Blood Cell Count 7.5 10^3/uL (4.8-10.8)
[2023-04-07 19:14] LABS: ALT (SGPT) 33 U/L (0-35); AST (SGOT) 29 U/L (14-36); Albumin 3.1 g/dl (3.5-5.0); Alkaline Phosphatase 134 U/L (38-126); Blood Urea Nitrogen 31 mg/dl (7-17); Calcium 8.8 mg/dl (8.4-10.2); Carbon Dioxide 21 mmol/L (22-30); Chloride 109 mmol/L (98-107); Estimated Creatinine Clearance 39 ml/min; Glucose 114 mg/dl (70-99); Potassium 3.2 mmol/L (3.5-5.1); Sodium 137 mmol/L (135-145); Total Bilirubin 0.7 mg/dl (0.2-1.3); Total Protein 6.8 g/dl (6.3-8.2); eGFR > 60.00
--- NOTE | 2023-04-07 19:18 | ED.GENMED ---
History of Present Illness
General
Chief Complaint: Breathing Problem
Source: patient
Exam Limitations: none
Time Seen by Provider: 04/07/23 19:02
Nursing documentation reviewed up to this point in time: agreed with
Travel History
Have you had any contact with someone who has COVID-19?: No
Do you have any symptoms of coronavirus? Fever > 100 degrees, chills, cough, shortness of breath, sore throat, loss of taste or smell, muscle aches, or headache?: Yes
Symptoms:: SOB
History of Present Illness
History of Present Illness:
Patient to ED with complaint of increasing SOB, BLE swelling. States SOB has increased in the past 24 hours. Noticed leg swelling tonight. States she typically does not have swelling. Denies any CP/pressure. Feels winded with minimal activity.
No prior history of same. Pulse ox 96% RA at rest. Drops to 90-91 with minimal ambulation. She was recently admitted here for dehydration, diarrhea. Bilateral small pleural effusions were noted at that time along with pancreatic lesion. SHe was
seen by dr. cain, had repeat CT this past week. Plan was to schedule diagnostic thoracentesis for this week.
Past History
Past History
ED Past Medical History: Arrthythmia (A. fib) and HTN
ED Past Surgical History: Cholecystectomy and Orthopedic
Social History
Tobacco: Non-smoker
Alcohol: None
Personal:
Living: with family
Review of Systems
Review of Systems
Allergies reviewed?: Yes
All Other Systems: ROS reviewed and negative except as documented in HPI and ROS
Constitutional: Reports no symptoms
EENT: Reports no symptoms
Respiratory: Reports trouble breathing
Cardiac: Reports no symptoms
ABD/GI: Reports no symptoms
: Reports no symptoms
Musculoskeletal: Reports edema (+2BLE)
Skin: Reports no symptoms
Neurological: Reports no symptoms
Psychiatric: Reports no symptoms
Phy Exam
General Physical Exam
General Presentation: well appearing
General age: appears stated age
General Skin: warm and dry
General Habitus: normal
General Mental: alert
Cardiovascular Exam
Cardiovascular Exam: regular rate/rhythm
Pulmonary Exam
Pulmonary Exam: no respiratory distress and chest non tender
Breath Sounds: Crackles: left lower and right lower
Gastrointestinal Exam
Gastrointestinal Exam: normal bowel sounds and non tender
Musculoskeletal Exam
Musculoskeletal Exam: edema (+2 BLE) and neuro vasc intact
Skin Exam
Skin Exam: normal color, warm/dry and no rash
Psychiatric Exam
Psychiatric Exam: normal mood/affect
Scores
Heart Failure Risk
Heart Failure Risk Score: Yes
History of Stroke or TIA: No
History of intubation for respiratory distress: No
Heart rate on ED arrival >/= 110: No
SaO2 <90% on arrival on room air: No
HR >/=110 during 3min walk test (or too ill to perform test): Yes
ECG has acute ischemic changes: No
Urea >/=12mmol/L (BUN 33.6mg/dL): No
Serum CO2>/=35mmol/L: No
Troponin I or T elevated to AL Level (0.4mg/dL): No
NT-proBNP >/=5,000ng/L (5,000pg/ml): Yes
HF Risk Score: 3
Admission Status: HIGH RISK 15.9% Consider SNF treatment or admission to hospital
Course
Orders/Labs/Results
Orders:
Orders
04/07/23 Breakfast
Cholesterol Lowering
Fluid Restriction: 1500 mL/day (50 oz)
Cholesterol Lowering: Sodium, 2 Gram
Low Residue
04/07/23 18:55
Electrocardiogram (*1) Urgent
Reason for Study: QTc Monitoring
EKG- Treatment ONCE
04/07/23 18:58
Complete Blood Count/With Diff Urgent
Comprehensive Metabolic Panel Urgent
NT-proBNP Urgent
Comment: ADD ON
04/07/23 19:19
CR Chest - 2 Views Urgent
Comment:
Reason For Exam: SOB
04/07/23 19:20
Add On- LAB Urgent
Tests Added?: BNP
04/07/23 20:28
Potassium Chloride [KCl] 40 meq PO NOW STA
04/07/23 21:31
Admit/Transfer Patient As Directed
Co-Sign Provider:
Level of Care: Inpatient admission
Assign to:: Telemetry
Physician / Group: Angel
Diagnosis: CHF
Reason for Telemetry: Subacute Heart Failure
Date to Stop Telemetry: 04/09/23
Time to Stop Telemetry: 11:00
Reason for Hospitalization: CHF exacerbation
Expected length of stay greater than two midnights?: Yes
ELOS- Estimated Length of Stay in days: 3
I certify the patient meets the requirements for IP care: Yes
04/07/23 21:43
Code Status As Directed
Resuscitation Status: Full Code
04/07/23 22:38
Troponin I Q6H
Comment: at admission & every 6 hours x 2 (3 total), ECG to be done with each level
Potassium Chloride [KCl] 20 meq PO ONCE@2200 ONE
04/07/23 22:38
HF DIETARY CONSULT Routine
HF EDUCATOR CONSULT Routine
Comment:
Activity As Directed
Activity Level: Out of Bed-Early Mobility
Intake/ Output As Directed
Frequency: Per unit guidelines
Patient Education As Directed
Type: CHF folder
Comment: give on admission. Document in Interdisciplinary Education record
Sleep Apnea Assessment by RN As Directed
Comment:
Physician Instructions:
Vital Signs As Directed
Frequency: Other
Additional Instructions:: Q12 or per unit guidelines if more frequent.
Weight As Directed
Frequency: Daily
Type of Scale: Standing Scale
Comment: Daily morning weight. If unable to stand, use balanced bed scale.
Weight As Directed
Frequency: Once
Type of Scale: Standing Scale
Comment: Upon Admission. If unable to stand, use balanced bed scale.
Pulse Ox/cont/shift [RESP] Routine
Quantity: 1
Special Instructions: Daily pulse oximetry at rest. If greater than 92% at rest also obtain pulse oximetry
while ambulating as tolerated.
04/07/23 22:56
Loperamide [Imodium Liquid] 2 mg PO BIDPRN PRN
04/08/23 04:38
Troponin I Q6H
Comment: at admission & every 6 hours x 2 (3 total), ECG to be done with each level
04/08/23 06:00
Basic Metabolic Panel IN AM
Magnesium IN AM
TSH Reflex To Free T4 IN AM
04/08/23 08:00
Apixaban [Eliquis] 5 mg PO BID
Carvedilol [Coreg] 6.25 mg PO BID
Furosemide [Lasix] 40 mg IV BID AT 0800,1600
Potassium Chloride Powder [Klor-Con] 20 meq PO BID
Potassium Chloride Powder [Klor-Con] 20 meq PO DAILY
Valsartan [Diovan] 40 mg PO DAILY
04/08/23 10:38
Troponin I Q6H
Comment: at admission & every 6 hours x 2 (3 total), ECG to be done with each level
04/09/23 06:00
Basic Metabolic Panel IN AM
04/09/23 11:00
DC Protocol for Telemetry ONCE
04/10/23 06:00
Basic Metabolic Panel IN AM
Abnormal Lab Results
04/07/23
18:58
RBC 3.74 L 10^6/uL
(4.20-5.40)
Hgb 11.4 L g/dL
(12.0-16.0)
Hct 34.0 L %
(37.0-47.0)
MPV 10.9 H fL
(7.4-10.4)
Lymphocytes % 20.1 L %
(20.5-51.1)
Potassium 3.2 L mmol/L
(3.5-5.1)
Chloride 109 H mmol/L
(98-107)
Carbon Dioxide 21 L mmol/L
(22-30)
BUN 31 H mg/dl
(7-17)
Glucose 114 H mg/dl
(70-99)
Alkaline Phosphatase 134 H U/L
(38-126)
Albumin 3.1 L g/dl
(3.5-5.0)
04/07/23 18:58
04/07/23 18:58
Vital Signs
Initial and Last Documented VS:
Initial Vital Signs
Temp Pulse Resp BP Pulse Ox
97.9 F 70 20 133/80 96
04/07/23 18:22 04/07/23 18:22 04/07/23 18:22 04/07/23 18:22 04/07/23 18:22
Last Documented Vital Signs
Temp Pulse Resp BP Pulse Ox
97.9 F 83 24 162/107 84
04/07/23 18:22 04/07/23 22:01 04/07/23 22:01 04/07/23 21:00 04/07/23 22:01
*Critical Care Note
Total Time (30-74mins, 75-104mins- exclusive of procedures): Not Applicable
Update Note
Update Note:
Patient to ED with complaint of SOB with minimal activity. Symptoms began 2 days ago. No prior history of same. Denies any CP/pressure. No cough. Reports bilateral lower extremity swelling which is not typical for her. Labs reviewed. K 3.2
Given 40meq KCL in dept. BNP 7410. CXR 'cardiogenic vs noncardiogenic congestion'. WIll admit to hospitalist service. Case discussed with Dr. Vivar who agrees with findings and plan, prefers to delay lasix, defer to hospitalist while
replacing potassium.
ED Attending Note
-
Portions of this chart may have been created with voice recognition software.� Occasional wrong word or��sound alike� substitutions may have occurred due to the inherent limitations of voice recognition software.
Discharge Plan
Departure
Patient Disposition: Admit
Date of Disposition: 04/07/23
Time of Disposition: 20:31
Presentation/result/management discussed w/ accepting MD/DO: Hospitalist
Patient with high blood pressure during this ER visit?: Yes
Condition: Fair
Covid-19: Not Applicable
Discharge Problem:
CHF (congestive heart failure)
Interventions
Interventions:
*Risk Screen - Suicide Last Done: 04/07/23 19:02
*General Assessment Last Done: 04/07/23 18:22
*Neglect/Abuse Screening Last Done: 04/07/23 19:02
ED- Fall Risk Assessment Last Done: 04/07/23 19:02
*ED COVID-19 Vaccine History Last Done: 04/07/23 18:22
*Nursing Disposition Last Done: 04/07/23 22:30
ED- Cardiac Assessment Last Done: 04/07/23 19:02
ED- Pulmonary Assessment Last Done: 04/07/23 19:02
Discharge Date and Time
Discharge Date/Time: 04/07/23 22:30
[2023-04-07 19:52] LABS: NT-proBNP 7470 pg/ml
[2023-04-07 20:06] VITALS: BP 144/103
[2023-04-07] MEDS: KCL 40 MEQ PO (20:39)
[2023-04-07 21:00] VITALS: BP 162/107
--- NOTE | 2023-04-07 21:31 | HPS.HSE ---
Addendum entered and electronically signed by Tejas Ortiz MD 04/07/23 22:22:
[facility] , [address] [facility] [place]. [address], [place] their phone number is [phone]
Original Note:
Family Physician
-
Family Physician: Shahrzad Dietrich MD
Chief Complaint
-
Shortness of breath
History of Present Illness
Pleasant 87-year-old female was discharged from the hospital couple weeks ago when she was admitted for diarrhea, and the workup then was negative including C. difficile, prior to this she was in the hospital for pneumonia was treated with
antibiotic.
Over the last couple of the admits she has been progressively short of breath worse with any kind exertional activity even in her room going to the bathroom today and, now she was extremely short of breath, denies any fever or chill admit cough
especially when laying on her back, associated orthopnea but no paroxysmal nocturnal dyspnea. No chest pain or dizziness or any palpitation or syncope, no sick contacts or recent travels.
No weight gain, she was told recently that she had an echo with her own catalyst operator and [facility] that she has congestive heart failure and according to the document she has evidence of cardio neurologist she has cardiomyopathy, mitral
insufficiency. Also cardiology just this week stop amiodarone and increase her dose of carvedilol to 6.25 also started 40 mg valsartan and discontinue 20 mg Lasix.
Patient drinks good amount of the tea daily around 4 Minimum with water.
Workup in the ER concerning for CHF, given a dose of Lasix.
Also she has been complaining of diarrhea for the last 2 to 3 weeks after she was admitted and discharged on March 23, she moves about 2-3 times daily for now she is on loperamide and decided to stop it on her own.
So she had a CT chest on April 03 per recommendation of the mud analysis supervisor. And the result as below.1. Scattered foci of groundglass opacities in the peribronchiolar distribution, unchanged on the right and progressed on the left side.
2. Apparent nodular opacity within the right lower lobe measures 3.8 cm in diameter on current study, decreased in size compared to 4.8 cm on prior study.
3. Peripheral nodular opacity within the left lower lobe is slightly increased in size.
4. Overall, findings favor infectious or inflammatory disease, rather than neoplastic. Continued CT follow-up to resolution is suggested.
5. Small bilateral pleural effusions, right greater than left, grossly unchanged compared to prior study.
6. Borderline enlargement of a precarinal mediastinal lymph node, unchanged.
7. Unchanged right thyroid nodule, measuring 1.5 cm in diameter.
Medical History
Past Medical History
Past Medical History: Reports Other
Additional Past Medical History:
Past medical history reviewed:
Cardiomyopathy
Mitral regurgitation
A-fib
Hypertension
Chronic pleural effusion
Pulmonary mass which is look like the recent CAT scan shows some improvement she follows up with pulmonary as an outpatient
Scoliosis
Osteoporosis
Recent pneumonia
Recent diarrhea and she continued to have diarrhea for the last couple
Surgical history:
Cholecystectomy
Right shoulder surgery for rotator cuff tear
Vein stripping
Social history: lives with the independently, denies smoking alcohol use.
Family history: Reviewed and noncontributory
Past Surgical History: Reports Other
Social History
Alcohol: Other
Living: Other
Family History
Family History: Other
Allergies / Home Medications
Allergies reflects when Allergies were last updated in [facility].
Home Medications with original date entered in [facility]
Allergy/Medication List:
Allergies
Allergy/AdvReac Type Severity Reaction Status Date / Time
No Known Allergies Allergy Verified 04/07/23 18:30
Home Medications
apixaban 5 mg tablet (Eliquis) 5 mg PO BID Blood Clot Prevention/Tx 10/06/20
carvedilol 3.125 mg tablet 3.125 mg PO BID Heart Disease/Condition 10/06/20
amiodarone 200 mg tablet 200 mg PO DAILY Arrhythmia 03/23/23
ascorbic acid (vitamin C) 1,000 mg tablet (Vitamin C) 1,000 mg PO DAILY Supplement 03/23/23
cholecalciferol (vitamin D3) 50 mcg (2,000 unit) tablet (Vitamin D3) 50 mcg PO DAILY Supplement 03/23/23
cranberry 400 mg capsule 1,500 mg PO DAILY Supplement 03/23/23
loperamide 1 mg/7.5 mL oral liquid 2 mg PO BIDPRN PRN DIARRHEA 03/23/23
omega 7-zjo-ngi-fish oil 1,200 mg (144 mg-216 mg) capsule (Fish Oil) 1 cap PO DAILY High Cholesterol 03/23/23
red yeast rice 600 mg tablet 1,200 mg PO DAILY High Cholesterol 03/23/23
turmeric 400 mg capsule 1,500 mg PO DAILY Supplement 03/23/23
vitamin E 268 mg (400 unit) capsule 180 mg PO DAILY Supplement 03/23/23
Review of Systems
-
A 12 point ROS was completed and negative except as noted: Yes
Physical Exam
Vital Signs
Vital Signs
Temp Pulse Resp BP Pulse Ox
97.9 F 70 17 160/94 97
04/07/23 18:22 04/07/23 19:00 04/07/23 19:00 04/07/23 19:00 04/07/23 19:02
Physical exam:
General: Awake, alert and oriented x3, mildly short of breath especially when she walked out of the bathroom and when she talks, but not in distress and holds appropriate conversation.
HEENT: No active discharge, ecchymosis or bruising, moist lips, tongue and mucous membrane.
Eyes: No discharge or red conjunctiva, no nystagmus, pupils are reactive and equal
Neck:Supple, no JVD no bruit no goiter.
Respiratory: Normal AP contour and diameter, normal chest wall movement, normal respiratory effort, no respiratory distress,
Lungs: Good air entry bilaterally, no wheezing or rhonchi, coarse bibasilar crackles
Heart: S1, S2 regular, normal rate, no added sound.
Gastrointestinal: Positive bowel sounds, soft, nontender, no guarding or rigidity or organomegaly
Musculoskeletal: , no chest wall abnormality or tenderness. All joints and extremities have good range of motion, no muscle tenderness or any joint swelling or tenderness.
Extremities: Mild lower extreme pitting edema, good peripheral pulses, good range of motion
Skin: Warm and dry, no ulceration, normal color.
Neurological: Awake, alert and oriented x3, speech clear and comprehensive, normal gait, speech clear and comprehensive, good muscle tone, normal mentation
Psychiatric: Normal mood, normal thought and judgment, normal affect,
Physical Exam
General: Other
Laboratory Results
-
04/07/23 18:58
04/07/23 18:58
Laboratory Results
Total Bilirubin 0.7 mg/dl (0.2-1.3) 04/07/23 18:58
AST 29 U/L (14-36) 04/07/23 18:58
ALT 33 U/L (0-35) 04/07/23 18:58
Alkaline Phosphatase 134 U/L (38-126) H 04/07/23 18:58
chest x-ray:Findings suspicious for cardiogenic versus noncardiogenic congestion. Small bilateral pleural effusions, left slightly greater than right.
Data Reviewed
-
Diagnostic Radiology: Image Personally Visualized and interpreted and Discussed with Patient
Lab Data: Labs Reviewed by me and Discussed with Patient
Old Records: Reviewed
Impression/Plan
-
IMPRESSION:
Pleasant 87-year-old female who [place] in [facility] [place] presented to the hospital complaining of the 2-day worsening shortness of breath concern for acute on chronic congestive heart failure, never had an echo here but according to the recent visit to
her catalyst operator in [place] history of cardiomyopathy and she was told her heart does not have to speak to according to the patient's work.
Acute on chronic congestive heart failure, systolic versus diastolic
Doubted pneumonia
Doubt pulm embolism as she is on Eliquis
Bilateral small pleural effusion, CAT scan result as above was done April 03
Hypokalemia
A-fib anticoagulated with Eliquis
Hypertension
Diarrhea for the last few weeks
PLAN:
Manage procedure protocol as she is symptomatic
Workups reviewed
Monitor vital signs
Cardiac monitoring IV diuresis, Lasix 40 mg twice daily
Daily weight and intake and output
Recheck electrolytes renal function
Fluid restriction
Home medication reviewed
Cardiology consult, her own catalyst operator in [facility]
She had an echo done this week will try to get a copy
Advised about compliance with fluid and salt restriction
Replace potassium and I will put on potassium orally 20 mEq twice daily specially with the diarrhea and getting diuretic now, for 4 doses and could be adjusted or addressed accordingly.
Patient was amiodarone which was discontinued by cardiology this week and carvedilol dose increased to 6.25 and started on valsartan.
Continue her loperamide
Patient been getting low residual diet we will continue.
All discussed with the patient in detail and expressed understanding
CODE STATUS full code
DVT prophylaxis Eliquis
[2023-04-07 22:47] VITALS: BMI 21.5
[2023-04-07 23:04] VITALS: BMI 21.5
[2023-04-07] MEDS: KCL 20 MEQ PO (23:27)
--- NOTE | 2023-04-07 23:49 | PTCARENOTE ---
Pt admitted to IVU, pt belongings with pt, oriented to room/unit. HR A-fib/flutter w/ PVCs. Med rec completed. Pt states Primary Doctor altered Carvedilol from 3.125mg BID to 6.25 mg BID, D/C amio, and start Valsartan 40mg daily. Pt educated on plan
of care, pt states no further questions at this time. Pt c/o middle back pain that has been going on for past few days since breathing has gotten worse. Pt rates at 5/10, but can be relieved to a 2 to 3 out of 10 with laying in bed/repositioning. Pt
denies worsened SOB since arrival, CP, lightheadedness, or dizziness at this time. Informed to notify RN if any changes, call chris within reach.
Pt RA O2 97% at rest, on ambulation dropped to 93% RA.
[2023-04-08] VITALS (12 sets, daily range): BP systolic 96–151; BP diastolic 70–131; PULSE 65; O2SAT 94; BMI 21.5
[2023-04-08 01:12] LABS: Troponin I < 0.012 ng/ml
[2023-04-08 06:50] LABS: Troponin I < 0.012 ng/ml
[2023-04-08 08:00] LABS: Blood Urea Nitrogen 26 mg/dl (7-17); Calcium 8.8 mg/dl (8.4-10.2); Carbon Dioxide 18 mmol/L (22-30); Chloride 113 mmol/L (98-107); Estimated Creatinine Clearance 44 ml/min; Glucose 94 mg/dl (70-99); Magnesium 1.9 mg/dl (1.6-2.3); Potassium 4.1 mmol/L (3.5-5.1); Sodium 140 mmol/L (135-145); eGFR > 60.00
[2023-04-08] MEDS: DIOVAN 40 MG PO (08:19)
[2023-04-08] MEDS: ELIQUIS 5 MG PO ×2 (08:20→19:51)
[2023-04-08] MEDS: COREG 6.25 MG PO ×2 (08:20→19:50)
[2023-04-08] MEDS: KLOR-CON 20 MEQ PO ×2 (08:21→19:49)
[2023-04-08] MEDS: LASIX 40 MG IV ×2 (08:21→16:10)
[2023-04-08] MEDS: IMODIUM LIQUID 2 MG PO (09:15)
--- NOTE | 2023-04-08 09:46 | W.PN.HOSP.TC ---
Today's Communication/Plan
-
see bold
Assessment / Plan
Assessment / Plan
HPI: 87-year-old female who lives in [facility] at home presented to the hospital complaining of the 2-day worsening shortness of breath concern for acute on chronic congestive heart failure, never had an echo here but according to the recent visit to her
pharmaceutical salesperson in [place] history of cardiomyopathy and she was told her heart does not have to speak to according to the patient's work.
#Acute CHF exacerbation
Continue IV Lasix, request records from her outpatient pharmaceutical salesperson, consult cardiology here
Trend Cr, trend daily weights
#Paroxysmal atrial fibrillation
Her previous pharmaceutical salesperson recently discontinued amiodarone, and started her on Coreg 6.25 mg twice a day
Continue Eliquis
#Benign essential hypertension
Continue valsartan 40 mg daily
#Groundglass opacities on chest CT
#Right lower lobe nodular pulmonary
#Bilateral pleural effusions, right greater than left
Consult pulmonology, patient sees Dr. Leonard in the office
#Hypokalemia
Repleted and resolved
Continue potassium supplements
#Subacute diarrhea
Seen by GI 03/24/[address]23
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
inflammatory stranding throughout the distal descending and sigmoid colon which is nonspecific. Stool studies were negative, GI recommends LRD and Imodium as needed
#Chronic Metabolic acidosis
From diarrhea
Start sodium bicarb
#Known pancreatic lesion
Follow-up with her usual GI doctor in the office
DVT prophylaxis�Eliquis
Full code
Daughter updated at bedside 04/08
Total time spent to see the patient on the floor, examine the patient, review data and lab results, discuss treatment plan with patient, nursing staff around 51 minutes.
Physical Exam
General: No acute distress
HEENT: Normocephalic, Atraumatic, EOMI, MMM
Respiratory: Diminished breath sounds at the bases
Cardiac: Normal S1/S2, irregularly irregular
GI: Soft, Nontender, Nondistended, Normal Bowel Sounds
Extremities: No Clubbing, Cyanosis, or Edema
Neuro: Nonfocal/Grossly Intact
Anticipated Discharge: > 48 hours
Subjective/Interval History
-
Date of Service: April 08, 2023
Patient has dyspnea with activity. She continues to cough, productive of yellow sputum. She has had subacute diarrhea, improved.
Objective Data
-
Labs:
Laboratory Results
04/08/23
06:13
Sodium 140
Potassium 4.1 D
Chloride 113 H
Carbon Dioxide 18 L
BUN 26 H
Creatinine 0.8
Glucose 94
Calcium 8.8
Vital Signs:
Vital Signs
Temp Pulse Resp BP Pulse Ox
97.6 F 76 18 113/78 94
04/08/23 08:44 04/08/23 09:30 04/08/23 04:02 04/08/23 08:00 04/08/23 08:34
[2023-04-08 11:23] LABS: Troponin I < 0.012 ng/ml
--- NOTE | 2023-04-08 12:58 | CM ---
spoke to pt and daughter in room, she is prev indep, lives with her husb in a 2 story home with an elevator and 4 steps to enter. she denies any dc planning needs or dme's. plan is for dc to home when medically stable.
--- NOTE | 2023-04-08 13:05 | PTOTSP ---
Patient is independent with functional mobility. No skilled PT needs at this time. Will D/C PT services.
--- NOTE | 2023-04-08 15:39 | PTOTSP ---
Pt currently at mod I level with basic UB/LB self care, transfers and mobility in room and bathroom without AD. No further skilled OT indicated at this time.
[2023-04-08] MEDS: SODIUM BICARBONATE 650 MG PO ×2 (16:09→22:23)
--- NOTE | 2023-04-08 16:40 | CON.CAR ---
Addendum entered and electronically signed by Juanito Dominguez MD 04/08/23 17:23:
I saw and examined the patient.
The SHIPPING ASSISTANT's note was reviewed and I agree with the note.
Comment: 87 y/o female with persistent AFIB on Eliquis, LBBB, PMR, hx transient CM (and more recently echo showed CM with EF 35-40%, mild to moderate MR, moderate pulmonary HTN per OP notes), abnormal chest CT with poss PNA/pleural effusion/other
who is here for evaluation of SOB for 4-5 days. She is already feeling better with IV diuretics.
- IV diuresis possible transition to oral tomorrow afternoon vs 04/10/2023
- AF her HRs are controlled, continue apixaban and carvedilol
Original Note:
Consultation
Consultation Request
Date/Time Consultation Requested: 04/08/23 1545
Date/Time Consultation Performed: 04/08/23 1615
Requesting Provider: Dr. Martinez
Performing Provider: Diana GUERRERO for Dr. Dominguez
Reason for Consultation: CHF
Medical History
-
Chief Complaint: SOB
History of Present Illness:
87 y/o female with persistent AFIB on Eliquis, LBBB, PMR, hx transient CM (and more recently echo showed CM with EF 35-40%, mild to moderate MR, moderate pulmonary HTN per OP notes), abnormal chest CT with poss PNA/pleural effusion/other who is here
for evaluation of SOB for 4-5 days. Worse with laying. LE edema noted. She is feeling better after some diuresis. She was recently hospitalized with diarrhea and received IV fluids. She sees Dr. Grace for cardiology and he recently stopped
amiodarone and started valsartan and increased coreg.
Past Medical History
Past Medical History: Arrhythmias and Other (CM; as above)
Social History
Tobacco: Non-Smoker
Personal:
Living: With Family
Family History
Family History: Reviewed & Not Pertinent
Allergies / Home Medications
Allergy/AdvReac Type Severity Reaction Status Date / Time
No Known Allergies Allergy Verified 04/07/23 18:30
Medication Instructions Recorded Confirmed Type
apixaban 5 mg tablet (Eliquis) 5 mg PO BID Blood Clot 10/06/20 04/07/23 History
Prevention/Tx
ascorbic acid (vitamin C) 1,000 mg 1,000 mg PO DAILY Supplement 03/23/23 04/07/23 History
tablet (Vitamin C)
cholecalciferol (vitamin D3) 50 50 mcg PO DAILY Supplement 03/23/23 04/07/23 History
mcg (2,000 unit) tablet (Vitamin
D3)
cranberry 400 mg capsule 1,500 mg PO DAILY Supplement 03/23/23 04/07/23 History
loperamide 1 mg/7.5 mL oral liquid 2 mg PO BIDPRN PRN DIARRHEA 03/23/23 04/07/23 History
omega 2-kyx-wwj-fish oil 1,200 mg 1 cap PO DAILY High Cholesterol 03/23/23 04/07/23 History
(144 mg-216 mg) capsule (Fish Oil)
red yeast rice 600 mg tablet 1,200 mg PO DAILY High Cholesterol 03/23/23 04/07/23 History
turmeric 400 mg capsule 1,500 mg PO DAILY Supplement 03/23/23 04/07/23 History
vitamin E 268 mg (400 unit) capsule 180 mg PO DAILY Supplement 03/23/23 04/07/23 History
carvedilol 6.25 mg tablet 6.25 mg PO BID Heart Failure 04/07/23 04/07/23 History
valsartan 40 mg tablet 40 mg PO Daily Blood Pressure 04/07/23 04/07/23 History
Review of Systems
-
History Source: Patient and Other (and inpatient chart and OP chart)
All other systems: Negative unless noted
Respiratory: Trouble Breathing
Musculoskeletal: Edema
Physical Exam
Vital Signs
Temp Pulse Resp BP Pulse Ox
97.3 F 77 20 122/84 94
04/08/23 12:09 04/08/23 14:45 04/08/23 12:09 04/08/23 12:33 04/08/23 12:09
Lab Results
04/07/23 18:58
04/08/23 06:13
Troponin I < 0.012 ng/ml 04/08/23 10:51
Hii-D-Bddvgbypihq Pept 7470 pg/ml 04/07/23 18:58
Physical Exam
General: Well Developed, Well Nourished and No Apparent Distress
HEENT: Normocephalic and Anicteric
Respiratory: Clear and Non Labored Respirations
Cardiac: Irregular Rhythm
Musculoskeletal: No Edema
Skin: Warm and Dry
Neuro: AO x 3
Psych: Calm
Impression / Plan
-
Acute HFrEF:
-recent echo showed EF 35-40%, mild to moderate MR (02/2023), RVSP 50-55
-agree with IV diuresis, which requires intensive monitoring- will need PO lasix at d/c
-she is feeling improved
-on coreg and valsartan per primary pharmacy innovation assistant- follow up as OP
Persistent AFIB:
-op notes reviewed. Amiodarone recently stopped and plan is for rate-control. Continue coreg. Continue Eliquis.
LBBB:
-noted as OP
-follow telemetry
Abnormal chest CT:
-pulmonary following as OP, and now consulted here
Data Reviewed
-
EKG: Tracing Personally Visualized and interpreted (AFIB 82 BPM LBBB)
Radiology: Report Reviewed by me (CXR: Findings suspicious for cardiogenic versus noncardiogenic congestion. Small bilateral pleural effusions, left slightly greater than right.)
Labs: Labs Reviewed by me
Old Records: Reviewed (Dr. Grace 04/02/23 note- stopped amiodarone increased coreg and started valsartan)
--- NOTE | 2023-04-08 16:53 | CON.PUL ---
Consultation
Consultation Request
Date/Time Consultation Requested: 04/08/2023
Date/Time Consultation Performed: 04/08/2023
Requesting Provider: Dr. Martinez
Performing Provider: Dr. Jake Del Angel
Reason for Consultation: Pleural effusion/Abnormal CT chest
Medical History
-
Chief Complaint: SOB
History of Present Illness:
87-year-old woman who recently has been discharged from the hospital for diarrhea. She has history of recent pneumonia as well treated with antibiotics.
She reports progressive shortness of breath but denies any phlegm production, fevers or chest pain. Reports some coughing in the supine position. She recently has been diagnosed with heart failure.
Her medications have been adjusted. Amiodarone has recently been stopped.
She follows up with Dr. Leonard, CT of the chest was performed in the outpatient setting, it showed improved nodular opacities. Likely inflammatory. Patient also had bilateral pleural effusions. [facility] records reviewed, she has been followed for
abnormal CAT scan and possible lung nodule/mass/infiltrates.
This admission with increased proBNP in the 7000.
Patient received IV diuresis, she feels better.
Denies any cough, wheezing or phlegm production.
Denies any leg edema.
Past Medical History
Past Medical History: Other (See assessment and plan section)
Social History
Tobacco: Former Smoker
Alcohol: None
Drug: None
Personal: Single
Living: Alone
Family History
Family History: Reviewed & Not Pertinent
Allergies / Home Medications
Allergies
Allergy/AdvReac Type Severity Reaction Status Date / Time
No Known Allergies Allergy Verified 04/07/23 18:30
Home Medications
Medication Instructions Recorded Confirmed Last Taken Type
apixaban 5 mg tablet (Eliquis) 5 mg PO BID Blood Clot 10/06/20 04/07/23 04/07/23 10:00 History
Prevention/Tx
ascorbic acid (vitamin C) 1,000 mg 1,000 mg PO DAILY Supplement 03/23/23 04/07/23 04/06/23 History
tablet (Vitamin C)
cholecalciferol (vitamin D3) 50 50 mcg PO DAILY Supplement 03/23/23 04/07/23 04/06/23 History
mcg (2,000 unit) tablet (Vitamin
D3)
cranberry 400 mg capsule 1,500 mg PO DAILY Supplement 03/23/23 04/07/23 04/06/23 History
loperamide 1 mg/7.5 mL oral liquid 2 mg PO BIDPRN PRN DIARRHEA 03/23/23 04/07/23 03/22/23 History
omega 5-wcg-cec-fish oil 1,200 mg 1 cap PO DAILY High Cholesterol 03/23/23 04/07/23 04/06/23 History
(144 mg-216 mg) capsule (Fish Oil)
red yeast rice 600 mg tablet 1,200 mg PO DAILY High Cholesterol 03/23/23 04/07/23 04/06/23 History
turmeric 400 mg capsule 1,500 mg PO DAILY Supplement 03/23/23 04/07/23 04/06/23 History
vitamin E 268 mg (400 unit) capsule 180 mg PO DAILY Supplement 03/23/23 04/07/23 04/06/23 History
carvedilol 6.25 mg tablet 6.25 mg PO BID Heart Failure 04/07/23 04/07/23 04/07/23 10:00 History
valsartan 40 mg tablet 40 mg PO Daily Blood Pressure 04/07/23 04/07/23 Unknown History
Review of Systems
-
History Source: Patient
All other systems: Negative unless noted
Vitals / Labs / Diagnostic Testing
Vital Signs
Temp Pulse Resp BP Pulse Ox
97.3 F 77 20 122/84 94
04/08/23 12:09 04/08/23 14:45 04/08/23 12:09 04/08/23 12:33 04/08/23 12:09
Lab Data
04/07/23 18:58
04/08/23 06:13
Diagnostic Testing:
Physical Exam
-
HEENT: Normocephalic
Cardiovascular: S1/S2
Respiratory: Rales
GI: Soft and Non Distended
Neurology: Awake, Alert, Oriented and AO x 3
Skin: Warm
General: Respiratory Distress (n)
Assessment
-
87-year-old woman with past medical history noted, admitted with shortness of breath. Abnormal CT chest. Bilateral pleural effusions. Patient follows up in our office, being followed for abnormal CT chest.
We were consulted to comment on abnormal CT chest and pleural effusions.
Exertional dyspnea
Abnormal CT chest: Bilateral pleural effusions left greater than right
Suspect related to heart failure given increased proBNP.-Reports recent diagnosis of heart failure.
-
Conditions present prior admission:
History of pneumonia January 2019
Atrial fibrillation-on amiodarone until recently. On anticoagulation
Follows up with Dr. Chin at [facility]
Abnormal CT chest: Centrally located infiltrate/right lower lobe possible rounded atelectasis versus mass/mediastinal lymph node 1.7 cm subcarinal.
Follows with DR. Leonard-[facility] records reviewed.
-
Assessment and plan:
Abnormal CT chest: 04/03/2023-multiple abnormalities.
1. Scattered foci of groundglass opacities in the peribronchiolar distribution, unchanged on the right and progressed on the left side.
2. Apparent nodular opacity within the right lower lobe measures 3.8 cm in diameter on current study, decreased in size compared to 4.8 cm on prior study.
3. Peripheral nodular opacity within the left lower lobe is slightly increased in size.
4. Overall, findings favor infectious or inflammatory disease, rather than neoplastic. Continued CT follow-up to resolution is suggested.
5. Small bilateral pleural effusions, right greater than left, grossly unchanged compared to prior study.
6. Borderline enlargement of a precarinal mediastinal lymph node, unchanged.
7. Unchanged right thyroid nodule, measuring 1.5 cm in diameter.
-
Overall findings compared to February are stable to improved.
Bilateral pleural effusions noted, with increased proBNP possibly related to heart failure.
Patient states that she feels better since admission. Not requiring oxygen. Not in distress.
At this time would like to follow pleural effusion after proper diuresis.
I agree with obtaining records from cardiology as the patient states she was diagnosed with heart failure recently. May explain findings on CAT scan.
No indication for biopsies at this point. Per Dr. Leonard's notes he was following the right lower lobe density which is improved in size compared to prior.
-
Home oxygen assessment tomorrow morning
Hold off on thoracentesis, would perform only if there is no improvement after diuresis.
Will reevaluate tomorrow morning, depending on symptoms may consider the procedure for more rapid improvement. Patient not excited about undergoing any procedure if able to avoid.
Dr. Del Angel discussed with family members at bedside 04/08/2023.
If discharged in the next 24 to 48 hours, will need short-term follow-up in our office.
-
Will continue to follow.
--- NOTE | 2023-04-08 20:00 | PTCARENOTE ---
Assumed care. Patient in bed reading. A-FIB/BBB/occ PVC's, HR in the 80's. Trace ankle edema. Diminished breath sounds bilaterally, orthopneic. Does states dyspneic with ambulation, appears comfortable at rest POX 94%. Bruise right forearm. Walking
to the bathroom independently, using call chris for assistance.
[2023-04-09 05:08] VITALS: BP 135/68
[2023-04-09 05:20] VITALS: BMI 20.1
--- NOTE | 2023-04-09 05:52 | PTCARENOTE ---
No events overnight. Vitals stable, labs collected. Weight obtained on standing scale. Call chris in reach
[2023-04-09 06:06] LABS: Blood Urea Nitrogen 17 mg/dl (7-17); Calcium 8.4 mg/dl (8.4-10.2); Carbon Dioxide 23 mmol/L (22-30); Chloride 111 mmol/L (98-107); Estimated Creatinine Clearance 37 ml/min; Glucose 89 mg/dl (70-99); Magnesium 1.7 mg/dl (1.6-2.3); Phosphorus 3.5 mg/dl (2.5-4.5); Potassium 3.5 mmol/L (3.5-5.1); Sodium 137 mmol/L (135-145); eGFR > 60.00
[2023-04-09 06:51] VITALS: BP 131/82
[2023-04-09] MEDS: COREG 6.25 MG PO ×2 (07:21→19:40)
[2023-04-09] MEDS: ELIQUIS 5 MG PO ×2 (07:21→19:40)
[2023-04-09] MEDS: SODIUM BICARBONATE 650 MG PO ×3 (07:21→22:37)
[2023-04-09] MEDS: DIOVAN 40 MG PO (07:25)
[2023-04-09] MEDS: LASIX 40 MG IV (07:27)
[2023-04-09] MEDS: KLOR-CON 20 MEQ PO (07:27)
--- NOTE | 2023-04-09 08:17 | W.PN.HOSP.TC ---
Today's Communication/Plan
-
see bold
Assessment / Plan
Assessment / Plan
HPI: 87-year-old female who lives in [facility] at home presented to the hospital complaining of the 2-day worsening shortness of breath concern for acute on chronic congestive heart failure, never had an echo here but according to the recent visit to her
dj instructor in [place] history of cardiomyopathy and she was told her heart does not have to speak to according to the patient's work.
#Acute Systolic CHF exacerbation
EF 35-40%, mild to moderate MR (02/2023), RVSP 50-55
Continue IV Lasix
Appreciate cardiology input, change IV lasix to lasix 40 mg po daily (new home regimen)
Start spironolactone 25 mg daily and Jardiance 10 mg daily for GDMT
Trend Cr, trend daily weights
#Paroxysmal atrial fibrillation
Her previous dj instructor recently discontinued amiodarone, and started her on Coreg 6.25 mg twice a day
Continue Eliquis
#Benign essential hypertension
Continue valsartan 40 mg daily
#Groundglass opacities on chest CT
#Right lower lobe nodular pulmonary
#Bilateral pleural effusions, right greater than left
Appreciate pulm, no thoracentesis needed
Patient sees Dr. Leonard in the office
#Hypokalemia
Repleted and resolved
Continue potassium supplements
#Subacute diarrhea
Seen by GI 03/24/2023
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
inflammatory stranding throughout the distal descending and sigmoid colon which is nonspecific. Stool studies were negative, GI recommends LRD and Imodium as needed
#Chronic Metabolic acidosis
From diarrhea
Started sodium bicarb
#Known pancreatic lesion
Follow-up with her usual GI doctor in the office
DVT prophylaxis�Eliquis
Full code
updated at bedside 04/09
Physical Exam
General: No acute distress
HEENT: Normocephalic, Atraumatic, EOMI, MMM
Respiratory: Diminished breath sounds at the bases
Cardiac: Normal S1/S2, irregularly irregular
GI: Soft, Nontender, Nondistended, Normal Bowel Sounds
Extremities: No Clubbing, Cyanosis, or Edema
Neuro: Nonfocal/Grossly Intact
Anticipated Discharge: Within 24 hours
Subjective/Interval History
-
Date of Service: April 09, 2023
Breathing improved.
Objective Data
-
Labs:
Laboratory Results
04/09/23
05:15
Sodium 137
Potassium 3.5
Chloride 111 H
Carbon Dioxide 23
BUN 17
Creatinine 0.9
Glucose 89
Calcium 8.4
Vital Signs:
Vital Signs
Temp Pulse Resp BP Pulse Ox
98.7 F 77 16 135/68 93
04/09/23 06:50 04/09/23 06:50 04/09/23 06:50 04/09/23 05:08 04/09/23 06:50
--- NOTE | 2023-04-09 08:42 | W.PN.CD ---
Today's Communication / Plan
-
-Will transition from Lasix 40 mg IV BID to 40 mg PO daily, which should be her home regimen.
-Will start spironolactone 25 mg daily for GDMT.
-Will start Jardiance 10 mg daily for GDMT.
-Continue Coreg 6.25 mg BID.
-Continue valsartan 40 mg daily.
-Will decrease potassium supplementation from 20 meq BID to 20 meq once daily, as spironolactone is being added.
-Will reassess tomorrow.
Impression / Plan
-
Acute HFrEF:
-EF 35-40%, mild to moderate MR (02/2023), RVSP 50-55
-Patient is not on Lasix at home.
-Will transition from Lasix 40 mg IV BID to 40 mg PO daily, which should be her home regimen.
-Will start spironolactone 25 mg daily for GDMT.
-Will start Jardiance 10 mg daily for GDMT.
-Continue Coreg 6.25 mg BID.
-Continue valsartan 40 mg daily.
-Will decrease potassium supplementation from 20 meq BID to 20 meq once daily, as spironolactone is being added.
Persistent AFIB:
-Amiodarone recently stopped and plan is for rate-control.
-Continue coreg.
-Continue Eliquis.
LBBB:
-Appears to be clinically stable.
Abnormal chest CT:
-Pulmonary following as OP, and now consulted here.
Physical Exam
Vital Signs/Labs
Vital Signs
Temp Pulse Resp BP Pulse Ox
98.7 F 77 16 135/68 93
04/09/23 06:50 04/09/23 06:50 04/09/23 06:50 04/09/23 05:08 04/09/23 06:50
04/08/23 04/09/23 04/10/23
06:59 06:59 06:59
Actual Weight 58.5 kg 54.7 kg
04/07/23 18:58
04/09/23 05:15
Magnesium 1.7 mg/dl (1.6-2.3) 04/09/23 05:15
04/07/23
18:58
Mja-P-Vzznldzvujb Pept 7470
LAB Results
04/08/23 04/08/23 04/08/23
00:33 06:13 10:51
Troponin I < 0.012 < 0.012 < 0.012
Physical Exam
Constitutional: No acute distress and Comfortable
EENT: Anicteric
Cardiovascular: Rhythm/rate is irregular, Pedal edema present (Trace), Systolic murmur present (Soft 2/6) and S1S2 is normal
Respiratory: Respiratory effort normal and Rhonchi Present (Mild bibasilar)
GI: Soft
Neuro/Psych: AO x 3
Other: Skin (Warm, dry, intact)
Data Reviewed
-
Date of Service: April 09, 2023
EKG: Tracing Personally Visualized and interpreted (Telemetry: A-fib)
Medical Tests (PFT, Pathology etc): Discussed with Patient
Labs: Labs Reviewed by me
[2023-04-09] MEDS: KCL 40 MEQ PO (09:11)
[2023-04-09] MEDS: JARDIANCE 10 MG PO (09:13)
--- NOTE | 2023-04-09 10:26 | CM ---
priced Jardiance at [facility], 30 day coapy is $96, her 90 day copay is 288. she has paid down her deductible already.
--- NOTE | 2023-04-09 10:49 | W.PN.PUL3 ---
Today's Communication / Plan
-
Continue IV diuresis
Monitor electrolytes
Cardiac medications been adjusted
Repeat chest x-ray tomorrow morning to follow-up on bilateral effusions.
Assessment
-
87-year-old woman with past medical history noted, admitted with shortness of breath. Abnormal CT chest. Bilateral pleural effusions. Patient follows up in our office, being followed for abnormal CT chest.
We were consulted to comment on abnormal CT chest and pleural effusions.
Exertional dyspnea-suspect due to new onset heart failure.
Abnormal CT chest: Bilateral pleural effusions left greater than right
Suspect related to heart failure given increased proBNP.-Reports recent diagnosis of heart failure.
Ejection fraction 35 to 40%, mild to moderate MR 02/2023
-
Conditions present prior admission:
History of pneumonia January 2019
Atrial fibrillation-on amiodarone until recently. On anticoagulation
Follows up with Dr. Chin at [facility]
Abnormal CT chest: Centrally located infiltrate/right lower lobe possible rounded atelectasis versus mass/mediastinal lymph node 1.7 cm subcarinal.
Follows with DR. Leonard-[facility] records reviewed.
-
Assessment and plan:
Abnormal CT chest: 04/03/2023-multiple abnormalities.
1. Scattered foci of groundglass opacities in the peribronchiolar distribution, unchanged on the right and progressed on the left side.
2. Apparent nodular opacity within the right lower lobe measures 3.8 cm in diameter on current study, decreased in size compared to 4.8 cm on prior study.
3. Peripheral nodular opacity within the left lower lobe is slightly increased in size.
4. Overall, findings favor infectious or inflammatory disease, rather than neoplastic. Continued CT follow-up to resolution is suggested.
5. Small bilateral pleural effusions, right greater than left, grossly unchanged compared to prior study.
6. Borderline enlargement of a precarinal mediastinal lymph node, unchanged.
7. Unchanged right thyroid nodule, measuring 1.5 cm in diameter.
-
Overall findings compared to February are stable to improved.
-
Bilateral pleural effusions noted, with increased proBNP possibly related to heart failure.
Echocardiogram from February 2023-new onset systolic heart failure ejection fraction 35 to 40%. Mild to moderate MR.
Feels better post diuresis
Cardiology following the patient, medications have been adjusted.
Her weight is trending lower.
-
At this time would like to follow pleural effusion after proper diuresis/cardiac optimization.
Repeat chest x-ray 04/10/2023.
-
No indication for biopsies at this point. Per Dr. Leonard's notes he was following the right lower lobe density which is improved in size compared to prior.
-
Dr. Del Angel discussed with family members at bedside 04/08/2023.
After discharge she will need short-term follow-up with Dr. Leonard.
-
Will continue to follow.
Subjective Data
-
Date of Service:
Date of Service: April 09, 2023
Chief Complaint: Pulmonary Follow Up (Bilateral pleural effusions/abnormal chest x-ray)
Subjective:
Reports improvement in shortness of breath
Denies any cough, wheezing or phlegm production.
Review of Systems
General: Fever (n)
Cardiopulmonary: Dyspnea (Improved), Cough (n) and Sputum Production (n)
GI: Abdominal Pain (n)
Objective Data
Data Reviewed
Vital Signs / I&O / Oxygen:
Vital Signs
Temp Pulse Resp BP Pulse Ox
98.7 F 81 16 131/82 93
04/09/23 06:50 04/09/23 07:00 04/09/23 06:50 04/09/23 06:51 04/09/23 06:50
SaO2 93
Physical Exam
General: Respiratory Distress (n) and Comfortable
HEENT: Normocephalic
Cardiovascular: S1-S2
Respiratory: Crackles and Non-Labored Respirations
GI: Soft and Non Distended
Neurology: Awake and Oriented
Labs/Micro/Reports
Lab Data
04/07/23 18:58
04/09/23 05:15
[2023-04-09 11:38] VITALS: BP 132/71
--- NOTE | 2023-04-09 12:32 | CM ---
priced jardiance with pts [facility]- her copay for 30 days is $96. 90 day copay is $ 288. pt is unsure she wants to start it, wants to talk to the cardiol here and her cardiol out of [place]. Deanne Campos, [place] aware.
[2023-04-09 15:29] VITALS: BP 113/84
--- NOTE | 2023-04-09 15:52 | PN.CDI ---
CDI
- -
CDI:
Physician Documentation Request
Admit Date: 04/07/23 22:07
Dear Doctor Do,
Clinical Indicators:
Patient admitted with acute systolic CHF exacerbation.
EKG, telemetry monitoring: Atrial Fibrillation documented.
Cardiology consult, 'Persistent AFIB: -op notes reviewed. Amiodarone recently stopped and plan is for rate-control.'
Hospitalist PN, Paroxysmal atrial fibrillation documented
Due to potentially conflicting documentation, please clarify the type of atrial fibrillation:
Persistent atrial fibrillation - episodes of continuous AF that last more than 7 days and do not self-terminate
Paroxysmal atrial fibrillation - terminates spontaneously or with intervention within 7 days of onset
Other - please specify
Use of terms such as suspected, likely, concern for, or probable (associated with a specific diagnosis that is being evaluated, monitored, or treated as if it exists) are acceptable and can be coded in the inpatient setting, when documented at the
time of discharge.
Thank you,
KATHY Edouard RN
CDI Specialist
available via tiger text
Please use your independent medical judgment in providing your response.
--- NOTE | 2023-04-09 18:00 | PTCARENOTE ---
Pt received this am with no c/o of sob or chest pain. Pt oob independently in the room, gait steady. Pt c/o of mild dizziness while walking into the bathroom to sit on the toilet. Pt rang for assistance to walk back but stated she felt better. No
changes on the monitor at that time.
[2023-04-09 19:29] VITALS: BP 102/71
[2023-04-09] MEDS: TYLENOL 650 MG PO (20:16)
[2023-04-09 22:35] VITALS: BP 129/73
--- NOTE | 2023-04-09 23:10 | PTCARENOTE ---
Patient c/o neck pain, described as 'ache'. Carter GUERRERO made aware, orders obtained for 650mg Tylenol administered--see APR. Patient w/ good relief. Tele remains Afib w/ BBBC and occasional PVCs. VSS and sating 94-95% RA. Denies any SOB. Patient
aware of POC.
[2023-04-10 02:53] VITALS: BP 119/57
[2023-04-10 03:03] VITALS: BMI 19.7
[2023-04-10 05:13] LABS: Blood Urea Nitrogen 28 mg/dl (7-17); Calcium 8.6 mg/dl (8.4-10.2); Carbon Dioxide 25 mmol/L (22-30); Chloride 107 mmol/L (98-107); Estimated Creatinine Clearance 33 ml/min; Glucose 81 mg/dl (70-99); Magnesium 1.7 mg/dl (1.6-2.3); Phosphorus 3.8 mg/dl (2.5-4.5); Potassium 4.1 mmol/L (3.5-5.1); Sodium 136 mmol/L (135-145); eGFR 54.19
[2023-04-10 07:58] VITALS: BP 94/70
[2023-04-10 07:59] VITALS: BP 111/73
[2023-04-10] MEDS: COREG 6.25 MG PO (08:04)
[2023-04-10] MEDS: SODIUM BICARBONATE 650 MG PO (08:04)
[2023-04-10] MEDS: KLOR-CON 20 MEQ PO (08:04)
[2023-04-10] MEDS: ELIQUIS 5 MG PO (08:04)
[2023-04-10] MEDS: ALDACTONE 25 MG PO (08:05)
[2023-04-10] MEDS: DIOVAN 40 MG PO (08:05)
[2023-04-10] MEDS: JARDIANCE 10 MG PO (08:05)
[2023-04-10] MEDS: LASIX 40 MG PO (08:05)
--- NOTE | 2023-04-10 08:38 | W.PN.HOSP.TC ---
Today's Communication/Plan
-
Discharge today
Assessment / Plan
Assessment / Plan
HPI: 87-year-old female who lives in [facility] at home presented to the hospital complaining of the 2-day worsening shortness of breath concern for acute on chronic congestive heart failure, never had an echo here but according to the recent visit to her
leather craftsman in [place] history of cardiomyopathy and she was told her heart does not have to speak to according to the patient's work.
#Acute Systolic CHF exacerbation
EF 35-40%, mild to moderate MR (02/2023), RVSP 50-55
Appreciate cardiology input, status post IV Lasix, now on lasix 40 mg po daily (new home regimen)
Started spironolactone 25 mg daily and Jardiance 10 mg daily for GDMT
Medically stable for discharge, follow-up with PCP for repeat BMP in 1 week
Follow-up with usual leather craftsman as well
# Persistent atrial fibrillation
Her previous leather craftsman recently discontinued amiodarone, and started her on Coreg 6.25 mg twice a day
Continue Eliquis
#Benign essential hypertension
Continue valsartan 40 mg daily
#Groundglass opacities on chest CT
#Right lower lobe nodular pulmonary
#Bilateral pleural effusions, right greater than left
Appreciate pulm, no thoracentesis needed
Patient sees Dr. Leonard in the office
#Hypokalemia
Repleted and resolved
Continue potassium supplements
#Subacute diarrhea
Seen by GI 03/24/2023
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
inflammatory stranding throughout the distal descending and sigmoid colon which is nonspecific. Stool studies were negative, GI recommends LRD and Imodium as needed
#Chronic Metabolic acidosis
From diarrhea
Started sodium bicarb
#Known pancreatic lesion
Follow-up with her usual GI doctor in the office
DVT prophylaxis�Eliquis
Full code
updated at bedside 04/09
Physical Exam
General: No acute distress
HEENT: Normocephalic, Atraumatic, EOMI, MMM
Respiratory: Diminished breath sounds at the bases
Cardiac: Normal S1/S2, irregularly irregular
GI: Soft, Nontender, Nondistended, Normal Bowel Sounds
Extremities: No Clubbing, Cyanosis, or Edema
Neuro: Nonfocal/Grossly Intact
Anticipated Discharge: Today
Subjective/Interval History
-
Date of Service: April 09, 2023
Patient reports dyspnea with activity has resolved. No shortness of breath at rest. No chest pain, no palpitations. She feels well, is ready for discharge today.
Objective Data
-
Labs:
Laboratory Results
04/09/23
05:15
Sodium 137
Potassium 3.5
Chloride 111 H
Carbon Dioxide 23
BUN 17
Creatinine 0.9
Glucose 89
Calcium 8.4
Vital Signs:
Vital Signs
Temp Pulse Resp BP Pulse Ox
98.2 F 77 16 132/71 95
04/09/23 15:27 04/09/23 15:27 04/09/23 15:27 04/09/23 11:38 04/09/23 15:27
--- NOTE | 2023-04-10 09:40 | W.PN.CD ---
Today's Communication / Plan
-
OK for home on current regimen and follow up with her [employer] dispensary clerk in 1 week. Pt understands plans
Will need BMP in 2 and 4 weeks with the new meds
Cardiology will sign off
Impression / Plan
-
Acute HFrEF:
-EF 35-40%, mild to moderate MR (02/2023), RVSP 50-55
-Patient is not on Lasix at home.
- On good initial therapy and can be uptitrated by her dispensary clerk
- Now on new Lasix, spironolactone, Jardiance 10 mg daily for GDMT.
- Already was on Coreg 6.25 mg BID and valsartan 40 mg daily.
- Will need BMP in 2 and 4 weeks with the new meds
Persistent AFIB:
-Amiodarone recently stopped and plan is for rate-control.
-Continue coreg.
-Continue Eliquis.
LBBB:
-Appears to be clinically stable.
Abnormal chest CT:
-Pulmonary following as OP, and now consulted here.
Subjective:
Pt feels well.
Physical Exam
Vital Signs/Labs
Vital Signs
Temp Pulse Resp BP Pulse Ox
98.2 F 97 18 111/73 92
04/10/23 02:54 04/10/23 08:04 04/10/23 07:57 04/10/23 08:04 04/10/23 08:00
04/09/23 04/10/23 04/11/23
06:59 06:59 06:59
Actual Weight 54.7 kg 53.8 kg
04/07/23 18:58
04/10/23 03:00
Magnesium 1.7 mg/dl (1.6-2.3) 04/10/23 03:00
04/07/23
18:58
Uov-P-Ywviosuakjt Pept 7470
LAB Results
04/08/23 04/08/23 04/08/23
00:33 06:13 10:51
Troponin I < 0.012 < 0.012 < 0.012
Physical Exam
Constitutional: No acute distress
EENT: Anicteric
Cardiovascular: Rhythm/rate is irregular
Respiratory: Respiratory effort normal and Lungs clear to auscul.
GI: Soft and Distention absent
Neuro/Psych: AO x 3
Data Reviewed
-
Date of Service: April 10, 2023
--- NOTE | 2023-04-10 10:52 | W.DCSUMMARY ---
Discharge Summary
Discharge Data
Date of Admission: 04/07/23
Date of Discharge: 04/10/23
-
Pending Results: No
Hospital Course
Discharge diagnoses:
Acute on chronic systolic congestive heart failure exacerbation
Persistent atrial fibrillation
Groundglass opacities on chest imaging
Bilateral pleural effusion left greater than right
Hypokalemia
Subacute diarrhea
Non-anion gap metabolic acidosis
Known pancreatic lesion
Consults: Cardiology, pulmonology
Chest CT:
1. Scattered foci of groundglass opacities in the peribronchiolar distribution, unchanged on the right and progressed on the left side.
2. Apparent nodular opacity within the right lower lobe measures 3.8 cm in diameter on current study, decreased in size compared to 4.8 cm on prior study.
3. Peripheral nodular opacity within the left lower lobe is slightly increased in size.
4. Overall, findings favor infectious or inflammatory disease, rather than neoplastic. Continued CT follow-up to resolution is suggested.
5. Small bilateral pleural effusions, right greater than left, grossly unchanged compared to prior study.
6. Borderline enlargement of a precarinal mediastinal lymph node, unchanged.
7. Unchanged right thyroid nodule, measuring 1.5 cm in diameter.
Hospital course:
87-year-old female with a past medical history of CHF, persistent atrial fibrillation on Eliquis, known pancreatic lesion, and subacute diarrhea was admitted for dyspnea with activity. Patient was found to have acute systolic CHF exacerbation.
Patient was seen in conjunction with cardiology, and diuresed with IV Lasix.
Patient also has permanent atrial fibrillation. Her previous outpatient implant polisher stopped her amiodarone, and increase her Coreg to 6.25 mg twice a day. She was continued on Eliquis.
Patient has groundglass opacities on her imaging. She sees Dr. Leonard in the office. She does have small bilateral pleural effusions, which improved with diuresis. She was seen in conjunction with pulmonology, who recommends outpatient follow-up.
She also has subacute diarrhea, she was admitted earlier this month for this. She was seen in conjunction with GI at that time, stool studies were negative. GI recommends taking Imodium as needed.
After several days, her dyspnea with activity resolved. Cardiology started her on Jardiance and spironolactone for GDMT. Cardiology recommends discharge on Lasix 40 mg p.o. daily. She needs to follow-up with her primary care doctor in 1 week for
BMP, her usual implant polisher in the office, as well as her usual utility plant operative.
Disposition: Home self-care
Discharge planning: Required 37 minutes
Discharge Plan
-
Patient Disposition: Home (Routine Discharge)
Discharge Diagnosis/Procedures: Congestive heart failure, permanent atrial fibrillation, small bilateral pleural effusions, subacute diarrhea
Condition: Good
Diet: Low Fat and Low Cholesterol
Activity: As tolerated
Driving Restrictions: As prior to admission
Blood Work: BMP with your primary care doctor in 1 week
Specialty Instructions: Weigh Daily- Call MD for wt gain/loss 3 lbs overnight/5 lbs in 1 week
Activity Restrictions/Additional Instructions:
You have been started on Jardiance to improve your heart function.
This is a medication commonly used for diabetes, but you do not have diabetes.
Please follow-up with your primary care doctor in 1 week, your usual implant polisher, and pulmonology in the office.
Instructions: *PCP/Other Mechanic General Operational Test Heart Failure Instructions
Referrals:
Liz Leonard MD [Active] - in two to three weeks
Shahrzad Dietrich MD [Family Provider] - in one week
Prescriptions:
New
spironolactone 25 mg Tablet
25 mg PO DAILY Qty: 30 0RF
carvedilol 3.125 mg Tablet
6.25 mg PO BID Qty: 0 0RF
Jardiance 10 mg Tablet
10 mg PO DAILY Qty: 30 0RF
furosemide 40 mg Tablet
40 mg PO DAILY Qty: 30 0RF
Continued
Eliquis 5 MG tablet
5 mg PO BID
ascorbic acid (vitamin C) [Vitamin C] 1,000 mg Tablet
1,000 mg PO DAILY
cranberry 400 mg Capsule
1,500 mg PO DAILY
vitamin E 268 mg (400 unit) Capsule
180 mg PO DAILY
loperamide 1 mg/7.5 mL Liquid
2 mg PO BIDPRN PRN (Reason: DIARRHEA)
cholecalciferol (vitamin D3) [Vitamin D3] 50 mcg (2,000 unit) Tablet
50 mcg PO DAILY
omega [id number]-fish oil [Fish Oil] 1,200 (144-216) mg Capsule
1 cap PO DAILY
red yeast rice 600 mg Tablet
1,200 mg PO DAILY
turmeric 400 mg Capsule
1,500 mg PO DAILY
carvedilol 6.25 mg Tablet
6.25 mg PO BID
valsartan 40 mg Tablet
40 mg PO Daily
Discharge Orders:
Discharge Patient (As Directed); Ordered 04/10/23
Ordered By: Josue Martinez
Care Plan Goals
Care Plan Goals:
Problem: Readiness for enhanced knowledge related to diagnosis and treatment plan
Goal: Understand your diagnosis and treatment plan needs, including medications if applicable.
Instructions: Know your diagnosis, underlying causes and treatment plan options, including medications if applicable. Consult with your health care team to learn about your diagnosis and treatment plan, including medications if applicable.
Discharge Date and Time
Discharge Date/Time: 04/10/23 12:50
[2023-04-10 11:28] VITALS: BP 105/78
--- NOTE | 2023-04-15 15:36 | W.HF.CON ---
Heart Failure
- LV Function
Left ventricular function study result: LV Ejection fraction >35% - 40%
Ejection Fraction Percentage: 35-40
- ARNI
Patient already on ARNI: No
Heart Failure ARNI Contraindication: Hypotension
- ACEI/ARB
Patient already on ACEI/ARB: Yes
- Beta Stephie
Patient already on Evidence Based Beta Stephie: Yes
- Mineralocorticord Receptor Antagonist
Patient already on MRA: Yes
- SGLT-2 Inhibitor
Patient already on SGLT-2 Inhibitor: Yes
- Afib Anticoagulation
Patient already on Anticoagulation for Afib: Yes
- NYHA CHF Classification
NYHA CHF Classification Level: Class III - Symptoms w/ min exertion, interferes w/ nml daily activity
- ACC/AHA Stage
ACC/AHA Stage: Stage C: Symptomatic Heart Failure
== END 2023-04-10 12:50 | disposition home or self-care (01) | DRG 291 ==
LOC: IVU 22:07
PROVIDERS: ADMITTING PHYSICIAN Internal Medicine; ATTENDING PHYSICIAN Family Medicine; CONSULT PHYSICIAN Internal Medicine Cardiovascular Disease; CONSULT PHYSICIAN Internal Medicine Critical Care Medicine; EMERGENCY PHYSICIAN Emergency Medicine; FAMILY PHYSICIAN Family Medicine
DX: I11.0 Hypertensive heart disease with heart failure (principal); I50.21 Acute systolic (congestive) heart failure; I50.23 Acute on chronic systolic (congestive) heart failure; E87.20 Acidosis, unspecified; I48.21 Permanent atrial fibrillation; I42.9 Cardiomyopathy, unspecified; E87.6 Hypokalemia; Z79.01 Long term (current) use of anticoagulants; I44.7 Left bundle-branch block, unspecified; Z87.891 Personal history of nicotine dependence; I48.0 Paroxysmal atrial fibrillation; K86.9 Disease of pancreas, unspecified; R19.7 Diarrhea, unspecified
CPT/HCPCS: 71046; 80048; 80053; 83735; 83880; 84100; 84443; 84484; 85025; 93005; 97162; 97165; 99285

== ENCOUNTER → 2023-04-15 17:11 | Outpatient (REF) | payer MEDICARE, OTHER, SELFPAY ==
[2023-04-15 17:37] LABS: % Basophils 0.7 % (0-2); % Eosinophils 1.7 % (0-6); % Immature Granulocytes 0.4 % (0-0.5); % Lymphocytes 24.1 % (20.5-51.1); % Monocytes 11.2 % (1.7-9.3); % Neutrophils 61.9 % (42.2-75.2); Absolute Basophils 0.1 10^3/uL (0-0.2); Absolute Eosinophils 0.1 10^3/uL (0-0.7); Absolute Lymphocytes 1.7 10^3/uL (1.2-3.4); Absolute Monocytes 0.8 10^3/uL (0.1-0.6); Absolute Neutrophils 4.4 10^3/uL (1.4-6.5); Hematocrit 35.5 % (37.0-47.0); Hemoglobin 11.6 g/dL (12.0-16.0); Mean Corp Hgb Conc. 32.7 g/dL (33.0-37.0); Mean Corpuscular Hgb 30.4 pg (27.0-31.0); Mean Corpuscular Volume 92.9 fL (81.0-99.0); Mean Platelet Volume 11.2 fL (7.4-10.4); Nucleated Red Blood Cells % 0 %; Platelet Count 254 10^3/uL (130-400); Red Blood Cell Count 3.82 10^6/uL (4.20-5.40); Red Cell Dist. Width 13.9 % (11.5-14.5); White Blood Cell Count 7.1 10^3/uL (4.8-10.8)
[2023-04-15 17:52] LABS: ALT (SGPT) 18 U/L (0-35); AST (SGOT) 22 U/L (14-36); Albumin 3.6 g/dl (3.5-5.0); Alkaline Phosphatase 115 U/L (38-126); Blood Urea Nitrogen 47 mg/dl (7-17); Calcium 8.7 mg/dl (8.4-10.2); Carbon Dioxide 23 mmol/L (22-30); Chloride 105 mmol/L (98-107); Glucose 74 mg/dl (70-99); Potassium 3.7 mmol/L (3.5-5.1); Sodium 135 mmol/L (135-145); Total Bilirubin 0.7 mg/dl (0.2-1.3); eGFR 26.77
[2023-04-15 17:58] LABS: NT-proBNP 3880 pg/ml
== END ==
LOC: REG 17:11
PROVIDERS: ATTENDING PHYSICIAN Family Medicine
DX: R42 Dizziness and giddiness (principal); R26.2 Difficulty in walking, not elsewhere classified; I50.1 Left ventricular failure, unspecified
CPT/HCPCS: 36415; 80053; 83880; 85025

== ENCOUNTER → 2023-04-17 12:02 | Outpatient (REF) | payer MEDICARE, OTHER, SELFPAY ==
[2023-04-17 13:35] LABS: NT-proBNP 3170 pg/ml
[2023-04-17 14:00] LABS: Blood Urea Nitrogen 33 mg/dl (7-17); Calcium 8.9 mg/dl (8.4-10.2); Carbon Dioxide 21 mmol/L (22-30); Glucose 107 mg/dl (70-99); eGFR 30.83
[2023-04-17 14:08] LABS: Chloride 103 mmol/L (98-107); Potassium 3.7 mmol/L (3.5-5.1); Sodium 137 mmol/L (135-145)
== END ==
LOC: REG 12:02
PROVIDERS: ATTENDING PHYSICIAN Family Medicine
DX: R79.89 Other specified abnormal findings of blood chemistry (principal); I50.9 Heart failure, unspecified
CPT/HCPCS: 36415; 80048; 83880

== ENCOUNTER → 2023-04-23 10:54 | Outpatient (REF) | payer MEDICARE, OTHER, SELFPAY ==
[2023-04-23 12:03] LABS: % Basophils 0.9 % (0-2); % Eosinophils 4.5 % (0-6); % Immature Granulocytes 0.5 % (0-0.5); % Lymphocytes 36.1 % (20.5-51.1); % Monocytes 9.8 % (1.7-9.3); % Neutrophils 48.2 % (42.2-75.2); Absolute Basophils 0.1 10^3/uL (0-0.2); Absolute Eosinophils 0.3 10^3/uL (0-0.7); Absolute Lymphocytes 2.1 10^3/uL (1.2-3.4); Absolute Monocytes 0.6 10^3/uL (0.1-0.6); Absolute Neutrophils 2.8 10^3/uL (1.4-6.5); Hematocrit 36.5 % (37.0-47.0); Hemoglobin 11.8 g/dL (12.0-16.0); Mean Corp Hgb Conc. 32.3 g/dL (33.0-37.0); Mean Corpuscular Hgb 29.8 pg (27.0-31.0); Mean Corpuscular Volume 92.2 fL (81.0-99.0); Mean Platelet Volume 10.7 fL (7.4-10.4); Nucleated Red Blood Cells % 0 %; Platelet Count 249 10^3/uL (130-400); Red Blood Cell Count 3.96 10^6/uL (4.20-5.40); White Blood Cell Count 5.7 10^3/uL (4.8-10.8)
[2023-04-23 12:32] LABS: ALT (SGPT) 24 U/L (0-35); AST (SGOT) 28 U/L (14-36); Albumin 3.7 g/dl (3.5-5.0); Alkaline Phosphatase 142 U/L (38-126); Blood Urea Nitrogen 40 mg/dl (7-17); Calcium 9.3 mg/dl (8.4-10.2); Carbon Dioxide 23 mmol/L (22-30); Chloride 107 mmol/L (98-107); Glucose 91 mg/dl (70-99); HDL Cholesterol 56 mg/dl; LDL Cholesterol, Calculated 143 mg/dl; Potassium 4.1 mmol/L (3.5-5.1); Sodium 135 mmol/L (135-145); Total Bilirubin 0.7 mg/dl (0.2-1.3); Total Cholesterol 218 mg/dl (50-199); Total Protein 7.3 g/dl (6.3-8.2); Triglyceride 99 mg/dl (10-149); Very Low Density Lipoprotein 19 mg/dl (0-30); eGFR 30.83
[2023-04-23 12:40] LABS: NT-proBNP 1790 pg/ml
[2023-04-23 12:49] LABS: Vitamin D, 25-OH*** 60.2 ng/mL (30-80)
[2023-04-23 13:02] LABS: TSH 2.59 uIU/ml (0.47-4.68)
== END ==
LOC: HWLAB 10:54
PROVIDERS: ATTENDING PHYSICIAN Family Medicine
DX: I50.21 Acute systolic (congestive) heart failure (principal); E78.00 Pure hypercholesterolemia, unspecified; I25.84 Coronary atherosclerosis due to calcified coronary lesion; I48.0 Paroxysmal atrial fibrillation; E55.9 Vitamin D deficiency, unspecified; M81.0 Age-related osteoporosis without current pathological fracture
CPT/HCPCS: 36415; 71046; 80053; 80061; 82306; 83880; 84100; 84443; 85025

== ENCOUNTER → 2023-04-30 08:57 | Outpatient (REF) | payer MEDICARE, OTHER, SELFPAY ==
[2023-04-30 12:24] LABS: Blood Urea Nitrogen 41 mg/dl (7-17); Carbon Dioxide 21 mmol/L (22-30); Chloride 110 mmol/L (98-107); Glucose 88 mg/dl (70-99); Potassium 4.3 mmol/L (3.5-5.1); Sodium 136 mmol/L (135-145); eGFR 39.55
[2023-04-30 12:38] LABS: NT-proBNP 1970 pg/ml
== END ==
LOC: HWLAB 08:57
PROVIDERS: ATTENDING PHYSICIAN Family Medicine
DX: I50.21 Acute systolic (congestive) heart failure (principal); I95.9 Hypotension, unspecified; N28.9 Disorder of kidney and ureter, unspecified; I48.0 Paroxysmal atrial fibrillation
CPT/HCPCS: 36415; 80048; 83880

== ENCOUNTER → 2023-05-29 11:45 | Outpatient (REF) | payer MEDICARE, OTHER, SELFPAY ==
[2023-05-29 16:12] LABS: % Basophils 0.4 % (0-2); % Eosinophils 2.2 % (0-6); % Immature Granulocytes 0.4 % (0-0.5); % Lymphocytes 32.3 % (20.5-51.1); % Monocytes 9.3 % (1.7-9.3); % Neutrophils 55.4 % (42.2-75.2); Absolute Eosinophils 0.2 10^3/uL (0-0.7); Absolute Lymphocytes 2.2 10^3/uL (1.2-3.4); Absolute Monocytes 0.6 10^3/uL (0.1-0.6); Absolute Neutrophils 3.8 10^3/uL (1.4-6.5); Hematocrit 38.4 % (37.0-47.0); Hemoglobin 12.3 g/dL (12.0-16.0); Mean Corpuscular Hgb 30.1 pg (27.0-31.0); Mean Corpuscular Volume 94.1 fL (81.0-99.0); Mean Platelet Volume 10.6 fL (7.4-10.4); Nucleated Red Blood Cells % 0 %; Platelet Count 260 10^3/uL (130-400); Red Blood Cell Count 4.08 10^6/uL (4.20-5.40); Red Cell Dist. Width 16.1 % (11.5-14.5); White Blood Cell Count 6.9 10^3/uL (4.8-10.8)
[2023-05-29 16:32] LABS: ALT (SGPT) 16 U/L (0-35); AST (SGOT) 24 U/L (14-36); Albumin 4.3 g/dl (3.5-5.0); Alkaline Phosphatase 157 U/L (38-126); Blood Urea Nitrogen 55 mg/dl (7-17); Carbon Dioxide 20 mmol/L (22-30); Chloride 103 mmol/L (98-107); Glucose 96 mg/dl (70-99); Potassium 5.6 mmol/L (3.5-5.1); Sodium 134 mmol/L (135-145); Total Bilirubin 0.7 mg/dl (0.2-1.3); Total Protein 7.9 g/dl (6.3-8.2); eGFR 33.31
== END ==
LOC: HWRAD 11:45
PROVIDERS: ATTENDING PHYSICIAN Internal Medicine Critical Care Medicine; FAMILY PHYSICIAN Family Medicine
DX: R93.89 Abnormal findings on diagnostic imaging of other specified body structures (principal); I50.21 Acute systolic (congestive) heart failure; I95.9 Hypotension, unspecified; N28.9 Disorder of kidney and ureter, unspecified; D64.9 Anemia, unspecified
CPT/HCPCS: 36415; 71046; 80053; 85025

== ENCOUNTER → 2023-06-03 10:53 | Outpatient (REF) | payer MEDICARE, OTHER, SELFPAY ==
[2023-06-03 14:11] LABS: Blood Urea Nitrogen 57 mg/dl (7-17); Calcium 9.8 mg/dl (8.4-10.2); Carbon Dioxide 19 mmol/L (22-30); Chloride 111 mmol/L (98-107); Glucose 86 mg/dl (70-99); Potassium 5.4 mmol/L (3.5-5.1); Sodium 135 mmol/L (135-145); eGFR 39.55
== END ==
LOC: HWLAB 10:53
PROVIDERS: ATTENDING PHYSICIAN Family Medicine
DX: E87.5 Hyperkalemia (principal)
CPT/HCPCS: 36415; 80048

== ENCOUNTER → 2023-06-27 12:02 | Outpatient (REF) | payer MEDICARE, OTHER, SELFPAY ==
[2023-06-27 16:43] LABS: Albumin 3.8 g/dl (3.5-5.0); Blood Urea Nitrogen 48 mg/dl (7-17); Calcium 9.7 mg/dl (8.4-10.2); Carbon Dioxide 15 mmol/L (22-30); Chloride 112 mmol/L (98-107); Glucose 110 mg/dl (70-99); Phosphorus 4.3 mg/dl (2.5-4.5); Potassium 4.9 mmol/L (3.5-5.1); Sodium 136 mmol/L (135-145); eGFR 39.55
== END ==
LOC: HWLAB 12:02
PROVIDERS: ATTENDING PHYSICIAN Family Medicine
DX: I50.21 Acute systolic (congestive) heart failure (principal); N28.9 Disorder of kidney and ureter, unspecified; E87.1 Hypo-osmolality and hyponatremia
CPT/HCPCS: 36415; 80069

== ENCOUNTER → 2023-07-22 15:24 | Outpatient (REF) | payer MEDICARE, OTHER, SELFPAY | LOC: HWRAD 15:24 | PROVIDERS: ATTENDING PHYSICIAN Internal Medicine Critical Care Medicine; FAMILY PHYSICIAN Family Medicine | DX: R91.8 Other nonspecific abnormal finding of lung field (principal) | CPT/HCPCS: 71250 ==

== ENCOUNTER → 2023-08-01 07:20 | Outpatient (REF) | payer MEDICARE, OTHER, SELFPAY | LOC: MRI 3T 07:20 | PROVIDERS: ATTENDING PHYSICIAN Pain Medicine Interventional Pain Medicine; FAMILY PHYSICIAN Family Medicine | DX: M54.16 Radiculopathy, lumbar region (principal) | CPT/HCPCS: 72148 ==

== ENCOUNTER → 2023-09-05 11:52 | Outpatient (REF) | payer MEDICARE, OTHER, SELFPAY ==
[2023-09-05 15:09] LABS: % Basophils 0.9 % (0-2); % Eosinophils 2.2 % (0-6); % Immature Granulocytes 0.2 % (0-0.5); % Lymphocytes 33.9 % (20.5-51.1); % Monocytes 10.7 % (1.7-9.3); % Neutrophils 52.1 % (42.2-75.2); Absolute Basophils 0.1 10^3/uL (0-0.2); Absolute Eosinophils 0.1 10^3/uL (0-0.7); Absolute Monocytes 0.6 10^3/uL (0.1-0.6); Hematocrit 36.4 % (37.0-47.0); Mean Corpuscular Hgb 31.7 pg (27.0-31.0); Mean Platelet Volume 11.3 fL (7.4-10.4); Nucleated Red Blood Cells % 0 %; Platelet Count 213 10^3/uL (130-400); Red Blood Cell Count 3.79 10^6/uL (4.20-5.40); Red Cell Dist. Width 14.2 % (11.5-14.5); White Blood Cell Count 5.8 10^3/uL (4.8-10.8)
[2023-09-05 15:17] LABS: ALT (SGPT) 17 U/L (0-35); AST (SGOT) 26 U/L (14-36); Albumin 4.1 g/dl (3.5-5.0); Alkaline Phosphatase 114 U/L (38-126); Blood Urea Nitrogen 42 mg/dl (7-17); Calcium 9.5 mg/dl (8.4-10.2); Carbon Dioxide 20 mmol/L (22-30); Chloride 107 mmol/L (98-107); Glucose 85 mg/dl (70-99); Potassium 5.2 mmol/L (3.5-5.1); Sodium 135 mmol/L (135-145); Total Bilirubin 0.8 mg/dl (0.2-1.3); Total Protein 7.2 g/dl (6.3-8.2); eGFR 43.54
== END ==
LOC: HWLAB 11:52
PROVIDERS: ATTENDING PHYSICIAN Family Medicine
DX: N28.9 Disorder of kidney and ureter, unspecified (principal); E78.00 Pure hypercholesterolemia, unspecified
CPT/HCPCS: 36415; 80053; 85025

== ENCOUNTER 2023-09-06 20:38 | Emergency (ER) | payer MEDICARE, OTHER, SELFPAY ==
[2023-09-06 20:42] VITALS: BP 104/59; BMI 20.3
[2023-09-06 21:39] VITALS: BP 108/62
--- NOTE | 2023-09-06 21:46 | ED.GENMED ---
History of Present Illness
General
Chief Complaint: Head Injury
Source: patient
Time Seen by Provider: 09/06/23 21:37
History of Present Illness
History of Present Illness:
87yoF with a history of atrial fibrillation on Eliquis and CHF presenting with her daughter for evaluation after a fall about 1.5 hours ago. Patient stood up and lost her balance. She fell striking her head against the drywall. No LOC. She denies
any prodromal dizziness or symptoms. She has some minor neck discomfort but is otherwise asymptomatic. She denies any headache or vomiting.
Past History
Past History
ED Past Medical History: Arrthythmia (A. fib) and HTN
ED Past Surgical History: Cholecystectomy and Orthopedic
Social History
Tobacco: Non-smoker
Alcohol: None
Personal:
Living: with family
Phy Exam
General Physical Exam
General Presentation: well appearing and no apparent distress
General age: appears stated age
General Skin: warm and dry
General Habitus: normal
ENT Exam
ENT Exam: normocephalic
Additional ENT: No external signs of head trauma. No C spine tenderness.
Eye Exam
Eye Exam: PERRL
Cardiovascular Exam
Cardiovascular Exam: regular rate/rhythm
Pulmonary Exam
Pulmonary Exam: lungs clear, no respiratory distress, no crackles and no wheezing
Neurological Exam
Neurological Exam: alert and no motor deficits
Petros Coma Scale
Eye Opening: Spontaneous
Verbal Response: Oriented
Motor Response: Obeys Commands
GCS Total Score: 15
Skin Exam
Skin Exam: normal color and warm/dry
Psychiatric Exam
Psychiatric Exam: normal mood/affect
Course
Orders/Labs/Results
Orders:
Orders
09/06/23 20:[address] [CT Head W/o Iv Contrast] Urgent
Comment:
Reason For Exam: fall, eliquis
09/06/23 21:45
CT Cervical Spine W/o Iv Contr Urgent
Comment:
Reason For Exam: Fall
Vital Signs
Initial and Last Documented VS:
Initial Vital Signs
Temp Pulse Resp BP Pulse Ox
98 F 63 16 104/59 98
09/06/23 20:42 09/06/23 20:42 09/06/23 20:42 09/06/23 20:42 09/06/23 20:42
Last Documented Vital Signs
Temp Pulse Resp BP Pulse Ox
98 F 63 16 106/60 99
09/06/23 20:42 09/06/23 20:42 09/06/23 20:42 09/06/23 23:00 09/06/23 23:00
MDM/Problems Addressed
Differential Diagnosis Includes:
87yoF here after a fall <2 hours ago. +Head strike. No LOC. On Eliquis. Relatively asymptomatic currently. She is awake, alert, with a GCS of 15. Vital signs stable. No external signs of head trauma on exam. No cervical spine tenderness present.
Differential diagnosis includes but is not limited to: Closed head injury, concussion, skull fracture, intracranial hemorrhage
Initial ED plan: Check CT head and cervical spine.
*Critical Care Note
Total Time (30-74mins, 75-104mins- exclusive of procedures): Not Applicable
Update Note
Update Note:
No acute traumatic injuries on imaging per [facility] report. Patient is asymptomatic on reassessment and is eager to go home. She is stable for discharge. Advised follow-up with PCP and ED return precautions were discussed. Patient was discharged
with her daughter in stable condition.
ED Attending Note
-
Portions of this chart may have been created with voice recognition software.� Occasional wrong word or��sound alike� substitutions may have occurred due to the inherent limitations of voice recognition software.
Discharge Plan
Departure
Patient Disposition: Home (Routine Discharge)
Date of Disposition: 09/06/23
Time of Disposition: 23:45
Patient with high blood pressure during this ER visit?: No
Discharge Problem:
Closed head injury
Instructions: Head Injury in Adults (DC)
Prescriptions:
No Action
Eliquis 5 MG tablet
5 mg PO BID
ascorbic acid (vitamin C) [Vitamin C] 1,000 mg Tablet
1,000 mg PO DAILY
cranberry 400 mg Capsule
1,500 mg PO DAILY
vitamin E 268 mg (400 unit) Capsule
180 mg PO DAILY
loperamide 1 mg/7.5 mL Liquid
2 mg PO BIDPRN PRN (Reason: DIARRHEA)
cholecalciferol (vitamin D3) [Vitamin D3] 50 mcg (2,000 unit) Tablet
50 mcg PO DAILY
omega 1-ton-zrc-fish oil [Fish Oil] 1,200 (144-216) mg Capsule
1 cap PO DAILY
red yeast rice 600 mg Tablet
1,200 mg PO DAILY
turmeric 400 mg Capsule
1,500 mg PO DAILY
carvedilol 6.25 mg Tablet
6.25 mg PO BID
valsartan 40 mg Tablet
40 mg PO Daily
spironolactone 25 mg Tablet
25 mg PO DAILY Qty: 30 0RF
carvedilol 3.125 mg Tablet
6.25 mg PO BID Qty: 0 0RF
Jardiance 10 mg Tablet
10 mg PO DAILY Qty: 30 0RF
furosemide 40 mg Tablet
40 mg PO DAILY Qty: 30 0RF
Referrals:
Shahrzad Dietrich MD [Family Provider] -
Activity Restrictions/Additional Instructions:
Please follow-up with your family doctor. Return to the ER with any worsening symptoms, severe headache, confusion, seizures.
Interventions
Interventions:
*Risk Screen - Suicide Last Done: 09/06/23 20:42
*General Assessment Last Done: 09/06/23 21:41
*Neglect/Abuse Screening Last Done: 09/06/23 20:42
ED- Fall Risk Assessment Last Done: 09/06/23 21:41
*ED COVID-19 Vaccine History Last Done: 09/06/23 23:55
*Nursing Disposition Last Done: 09/06/23 23:55
ED- Neurological Assessment Last Done: 09/06/23 21:41
ED-Skin Assessment Last Done: 09/06/23 21:41
Discharge Date and Time
Discharge Date/Time: 09/06/23 23:55
Print Language: ROMANIAN
[2023-09-06 22:00] VITALS: BP 107/62
[2023-09-06 23:00] VITALS: BP 106/60
== END 2023-09-06 23:55 | disposition home or self-care (01) ==
LOC: EMR 20:38
PROVIDERS: EMERGENCY PHYSICIAN Student in an Organized Health Care Education/Training Program; FAMILY PHYSICIAN Family Medicine
DX: S09.90XA Unspecified injury of head, initial encounter (principal); W19.XXXA Unspecified fall, initial encounter; I48.91 Unspecified atrial fibrillation; I11.0 Hypertensive heart disease with heart failure; I50.9 Heart failure, unspecified; Z79.01 Long term (current) use of anticoagulants; Z90.49 Acquired absence of other specified parts of digestive tract
CPT/HCPCS: 99284; 70450; 72125

== ENCOUNTER → 2023-09-10 15:50 | Outpatient (REF) | payer MEDICARE, OTHER, SELFPAY | LOC: HWWDC 15:50 | PROVIDERS: ATTENDING PHYSICIAN Family Medicine | DX: Z12.31 Encounter for screening mammogram for malignant neoplasm of breast (principal) | CPT/HCPCS: 77063; 77067 ==

== ENCOUNTER → 2023-09-27 10:45 | Outpatient (REF) | payer MEDICARE, OTHER, SELFPAY ==
[2023-09-27 13:12] LABS: ALT (SGPT) 17 U/L (0-35); AST (SGOT) 28 U/L (14-36); Albumin 3.8 g/dl (3.5-5.0); Alkaline Phosphatase 133 U/L (38-126); Blood Urea Nitrogen 34 mg/dl (7-17); Calcium 9.4 mg/dl (8.4-10.2); Carbon Dioxide 19 mmol/L (22-30); Chloride 110 mmol/L (98-107); Glucose 94 mg/dl (70-99); Potassium 4.7 mmol/L (3.5-5.1); Sodium 135 mmol/L (135-145); Total Bilirubin 0.8 mg/dl (0.2-1.3); eGFR 54.19
[2023-09-27 13:42] LABS: NT-proBNP 2580 pg/ml
== END ==
LOC: HWLAB 10:45
PROVIDERS: ATTENDING PHYSICIAN Family Medicine
DX: I95.1 Orthostatic hypotension (principal)
CPT/HCPCS: 36415; 80053; 83880

== ENCOUNTER → 2023-10-29 09:02 | Outpatient (REF) | payer MEDICARE, OTHER, SELFPAY ==
[2023-10-29 12:07] LABS: ALT (SGPT) 19 U/L (0-35); AST (SGOT) 30 U/L (14-36); Albumin 3.9 g/dl (3.5-5.0); Alkaline Phosphatase 122 U/L (38-126); Blood Urea Nitrogen 41 mg/dl (7-17); Calcium 9.5 mg/dl (8.4-10.2); Carbon Dioxide 20 mmol/L (22-30); Chloride 108 mmol/L (98-107); Glucose 94 mg/dl (70-99); Potassium 4.7 mmol/L (3.5-5.1); Sodium 138 mmol/L (135-145); Total Protein 7.1 g/dl (6.3-8.2); eGFR 48.33
[2023-10-29 12:20] LABS: NT-proBNP 1660 pg/ml
== END ==
LOC: HWLAB 09:02
PROVIDERS: ATTENDING PHYSICIAN Family Medicine
DX: I50.22 Chronic systolic (congestive) heart failure (principal); N18.32 Chronic kidney disease, stage 3b
CPT/HCPCS: 36415; 80053; 83880

== ENCOUNTER → 2024-01-20 10:45 | Outpatient (REF) | payer MEDICARE, OTHER, SELFPAY ==
[2024-01-20 15:56] LABS: % Basophils 0.5 % (0-2); % Eosinophils 2.6 % (0-6); % Immature Granulocytes 0.2 % (0-0.5); % Lymphocytes 30.5 % (20.5-51.1); % Monocytes 12.4 % (1.7-9.3); % Neutrophils 53.8 % (42.2-75.2); Absolute Eosinophils 0.1 10^3/uL (0-0.7); Absolute Lymphocytes 1.3 10^3/uL (1.2-3.4); Absolute Monocytes 0.5 10^3/uL (0.1-0.6); Absolute Neutrophils 2.3 10^3/uL (1.4-6.5); Hematocrit 35.8 % (37.0-47.0); Hemoglobin 11.3 g/dL (12.0-16.0); Mean Corp Hgb Conc. 31.6 g/dL (33.0-37.0); Mean Corpuscular Hgb 29.4 pg (27.0-31.0); Mean Corpuscular Volume 93.2 fL (81.0-99.0); Nucleated Red Blood Cells % 0 %; Platelet Count 240 10^3/uL (130-400); Red Blood Cell Count 3.84 10^6/uL (4.20-5.40); Red Cell Dist. Width 14.3 % (11.5-14.5); White Blood Cell Count 4.3 10^3/uL (4.8-10.8)
[2024-01-20 16:07] LABS: ALT (SGPT) 35 U/L (0-35); AST (SGOT) 42 U/L (14-36); Albumin 3.9 g/dl (3.5-5.0); Alkaline Phosphatase 151 U/L (38-126); Blood Urea Nitrogen 35 mg/dl (7-17); Calcium 9.1 mg/dl (8.4-10.2); Carbon Dioxide 22 mmol/L (22-30); Chloride 107 mmol/L (98-107); Glucose 92 mg/dl (70-99); Potassium 4.2 mmol/L (3.5-5.1); Sodium 137 mmol/L (135-145); Total Bilirubin 1.2 mg/dl (0.2-1.3); Total Protein 7.3 g/dl (6.3-8.2); eGFR 53.85
[2024-01-20 16:17] LABS: Microalbumin/creatinine Ratio 38.1 mg/g
== END ==
LOC: HWLAB 10:45
PROVIDERS: ATTENDING PHYSICIAN Family Medicine
DX: I42.9 Cardiomyopathy, unspecified (principal); I48.0 Paroxysmal atrial fibrillation; N18.32 Chronic kidney disease, stage 3b
CPT/HCPCS: 36415; 80053; 82043; 82570; 85025

== ENCOUNTER → 2024-01-23 11:57 | Outpatient (REF) | payer MEDICARE, OTHER, SELFPAY ==
[2024-01-23 13:09] LABS: % Basophils 0.9 % (0-2); % Eosinophils 1.8 % (0-6); % Immature Granulocytes 0.2 % (0-0.5); % Lymphocytes 31.4 % (20.5-51.1); % Monocytes 14.1 % (1.7-9.3); % Neutrophils 51.6 % (42.2-75.2); Absolute Eosinophils 0.1 10^3/uL (0-0.7); Absolute Lymphocytes 1.4 10^3/uL (1.2-3.4); Absolute Monocytes 0.6 10^3/uL (0.1-0.6); Absolute Neutrophils 2.3 10^3/uL (1.4-6.5); Hematocrit 36.6 % (37.0-47.0); Hemoglobin 11.5 g/dL (12.0-16.0); Mean Corp Hgb Conc. 31.4 g/dL (33.0-37.0); Mean Corpuscular Hgb 28.9 pg (27.0-31.0); Mean Platelet Volume 11.1 fL (7.4-10.4); Nucleated Red Blood Cells % 0 %; Platelet Count 238 10^3/uL (130-400); Red Blood Cell Count 3.98 10^6/uL (4.20-5.40); Red Cell Dist. Width 14.1 % (11.5-14.5); White Blood Cell Count 4.5 10^3/uL (4.8-10.8)
[2024-01-23 13:37] LABS: ALT (SGPT) 48 U/L (0-35); AST (SGOT) 51 U/L (14-36); Alkaline Phosphatase 175 U/L (38-126); Blood Urea Nitrogen 32 mg/dl (7-17); Carbon Dioxide 22 mmol/L (22-30); Chloride 110 mmol/L (98-107); Glucose 94 mg/dl (70-99); Potassium 4.5 mmol/L (3.5-5.1); Sodium 140 mmol/L (135-145); Total Bilirubin 0.9 mg/dl (0.2-1.3); Total Protein 7.4 g/dl (6.3-8.2); eGFR 53.85
[2024-01-23 13:43] LABS: NT-proBNP 3000 pg/ml
== END ==
LOC: REG 11:57
PROVIDERS: ATTENDING PHYSICIAN Family Medicine
DX: R07.89 Other chest pain (principal); R06.09 Other forms of dyspnea
CPT/HCPCS: 36415; 71046; 80053; 83880; 85025

== ENCOUNTER → 2024-01-27 10:11 | Outpatient (REF) | payer MEDICARE, OTHER, SELFPAY ==
[2024-01-27 11:59] LABS: Blood Urea Nitrogen 36 mg/dl (7-17); Calcium 9.5 mg/dl (8.4-10.2); Carbon Dioxide 24 mmol/L (22-30); Chloride 104 mmol/L (98-107); Glucose 97 mg/dl (70-99); Potassium 4.1 mmol/L (3.5-5.1); Sodium 136 mmol/L (135-145); eGFR 48.03
== END ==
LOC: HWLAB 10:11
PROVIDERS: ATTENDING PHYSICIAN Family Medicine
DX: R07.89 Other chest pain (principal)
CPT/HCPCS: 36415; 80048

== ENCOUNTER → 2024-02-03 09:52 | Outpatient (REF) | payer MEDICARE, OTHER, SELFPAY ==
[2024-02-03 12:23] LABS: % Basophils 0.5 % (0-2); % Eosinophils 2.4 % (0-6); % Immature Granulocytes 0.2 % (0-0.5); % Lymphocytes 28.2 % (20.5-51.1); % Monocytes 9.1 % (1.7-9.3); % Neutrophils 59.6 % (42.2-75.2); Absolute Eosinophils 0.1 10^3/uL (0-0.7); Absolute Lymphocytes 1.5 10^3/uL (1.2-3.4); Absolute Monocytes 0.5 10^3/uL (0.1-0.6); Absolute Neutrophils 3.3 10^3/uL (1.4-6.5); Hemoglobin 11.5 g/dL (12.0-16.0); Mean Corp Hgb Conc. 31.9 g/dL (33.0-37.0); Mean Corpuscular Hgb 29.1 pg (27.0-31.0); Mean Corpuscular Volume 91.1 fL (81.0-99.0); Mean Platelet Volume 11.5 fL (7.4-10.4); Nucleated Red Blood Cells % 0 %; Platelet Count 236 10^3/uL (130-400); Red Blood Cell Count 3.95 10^6/uL (4.20-5.40); Red Cell Dist. Width 14.7 % (11.5-14.5); White Blood Cell Count 5.5 10^3/uL (4.8-10.8)
[2024-02-03 12:39] LABS: Iron 40 ug/dl (37-170)
[2024-02-03 12:48] LABS: Percent Saturation 10 % (20-50); Total Iron Binding Capacity 390 ug/dl (265-497)
[2024-02-03 13:10] LABS: Ferritin 14.8 ng/ml (11.1-264.0)
== END ==
LOC: HWLAB 09:52
PROVIDERS: ATTENDING PHYSICIAN Family Medicine
DX: D64.9 Anemia, unspecified (principal)
CPT/HCPCS: 36415; 82728; 83540; 83550; 85025

== ENCOUNTER → 2024-04-27 10:46 | Outpatient (REF) | payer MEDICARE, OTHER, SELFPAY ==
[2024-04-27 16:16] LABS: % Basophils 0.8 % (0-2); % Eosinophils 2.5 % (0-6); % Immature Granulocytes 0.2 % (0-0.5); % Lymphocytes 28.2 % (20.5-51.1); % Monocytes 11.9 % (1.7-9.3); % Neutrophils 56.4 % (42.2-75.2); Absolute Eosinophils 0.1 10^3/uL (0-0.7); Absolute Lymphocytes 1.4 10^3/uL (1.2-3.4); Absolute Monocytes 0.6 10^3/uL (0.1-0.6); Absolute Neutrophils 2.7 10^3/uL (1.4-6.5); Hematocrit 39.1 % (37.0-47.0); Hemoglobin 12.3 g/dL (12.0-16.0); Mean Corp Hgb Conc. 31.5 g/dL (33.0-37.0); Mean Corpuscular Hgb 27.8 pg (27.0-31.0); Mean Corpuscular Volume 88.3 fL (81.0-99.0); Mean Platelet Volume 10.7 fL (7.4-10.4); Nucleated Red Blood Cells % 0 %; Platelet Count 267 10^3/uL (130-400); Red Blood Cell Count 4.43 10^6/uL (4.20-5.40); White Blood Cell Count 4.8 10^3/uL (4.8-10.8)
[2024-04-27 16:18] LABS: ALT (SGPT) 22 U/L (0-35); AST (SGOT) 29 U/L (14-36); Albumin 3.9 g/dl (3.5-5.0); Alkaline Phosphatase 149 U/L (38-126); Blood Urea Nitrogen 34 mg/dl (7-17); Calcium 9.5 mg/dl (8.4-10.2); Carbon Dioxide 23 mmol/L (22-30); Chloride 109 mmol/L (98-107); Glucose 94 mg/dl (70-99); HDL Cholesterol 87 mg/dl; LDL Cholesterol, Calculated 109 mg/dl; Potassium 4.6 mmol/L (3.5-5.1); Sodium 139 mmol/L (135-145); Total Bilirubin 0.9 mg/dl (0.2-1.3); Total Cholesterol 209 mg/dl (50-199); Total Protein 7.7 g/dl (6.3-8.2); Triglyceride 68 mg/dl (10-149); Very Low Density Lipoprotein 13 mg/dl (0-30); eGFR 53.85
[2024-04-27 16:48] LABS: TSH Reflex To Free T4 2.93 uIU/ml (0.47-4.68)
== END ==
LOC: HWLAB 10:46
PROVIDERS: ATTENDING PHYSICIAN Family Medicine
DX: R06.09 Other forms of dyspnea (principal); D64.9 Anemia, unspecified; I50.22 Chronic systolic (congestive) heart failure; I42.9 Cardiomyopathy, unspecified; I48.0 Paroxysmal atrial fibrillation; I11.0 Hypertensive heart disease with heart failure
CPT/HCPCS: 36415; 80053; 80061; 84443; 85025

== ENCOUNTER → 2024-06-10 12:26 | Outpatient (REF) | payer MEDICARE, OTHER, SELFPAY ==
[2024-06-10 16:15] LABS: ALT (SGPT) 17 U/L (0-35); AST (SGOT) 26 U/L (14-36); Alkaline Phosphatase 186 U/L (38-126); Blood Urea Nitrogen 38 mg/dl (7-17); Calcium 9.8 mg/dl (8.4-10.2); Carbon Dioxide 21 mmol/L (22-30); Chloride 109 mmol/L (98-107); Glucose 90 mg/dl (70-99); Potassium 4.8 mmol/L (3.5-5.1); Sodium 138 mmol/L (135-145); Total Bilirubin 1.1 mg/dl (0.2-1.3); Total Protein 7.8 g/dl (6.3-8.2); eGFR 53.85
[2024-06-10 16:18] LABS: NT-proBNP 3470 pg/ml
== END ==
LOC: HWLAB 12:26
PROVIDERS: ATTENDING PHYSICIAN Internal Medicine Cardiovascular Disease; FAMILY PHYSICIAN Family Medicine
DX: I42.9 Cardiomyopathy, unspecified (principal)
CPT/HCPCS: 36415; 80053; 83880